=== PATIENT | female | born 1945 | race American Indian/Alaskan Native ===

== ENCOUNTER 2016-12-18 12:22 | Inpatient (IN) | payer MEDICARE ==
--- NOTE | 2016-12-18 12:34 | Emergency Department Report ---
HPI - General Chief Complaint: Weakness Time Seen by Provider: 12/18/16 12:26 - HPI HPI: Room 21 The patient is a 71-year-old female presenting with a chief complaint weakness. Patient states she's felt weak for 1 day. Patient states she would've difficulty getting up secondary to weakness. Patient denies pain of any type or shortness of breath. Patient admits to nausea but denies vomiting. Patient admits to diarrhea for 1 day. Patient denies any history of fever. The patient has a history of uterine CA is currently on chemotherapy. The patient states last received chemotherapy approximately 2 weeks ago Location: [see above] Duration: One day Quality: Weakness Severity: Moderate Modifying factors: [see above] Context: [see above] Mode of transportation: [not driving] ED Past Medical Hx - Past Medical History Previous Medical History?: Yes Hx Hypertension: Yes Hx of Cancer: Yes (uterine, breast) Additional medical history: DVT - Surgical History Past Surgical History?: Yes Additional Surgical History: Port - Social History Smoking Status: Never Smoker Substance Use Type: None - Medications Home Medications: Home Medications Medication Instructions Recorded Confirmed Last Taken Type Atenolol [Tenormin] 100 mg PO DAILY 12/18/16 12/18/16 12/18/16 History Calcium Carbonate/Vitamin D3 1 each PO BID 12/18/16 12/18/16 12/18/16 History [Calcium 600-Vit D3 800 Tablet] Losartan [Cozaar] 50 mg PO QDAY 12/18/16 12/18/16 12/17/16 History Potassium Chloride [K-Dur] 10 meq PO BID 12/18/16 12/18/16 12/18/16 History ED Review of Systems ROS: Stated complaint: GENERAL WEAKNESS/LOW BP Other details as noted in HPI Comment: All other systems reviewed and negative Constitutional: weakness. denies: chills, fever Eyes: denies: eye pain, eye discharge, vision change ENT: denies: ear pain, throat pain Respiratory: no symptoms reported Cardiovascular: denies: chest pain, palpitations Endocrine: no symptoms reported Gastrointestinal: nausea, diarrhea. denies: vomiting Genitourinary: denies: urgency, dysuria, discharge Musculoskeletal: denies: back pain, joint swelling, arthralgia Skin: denies: rash, lesions Neurological: denies: headache, weakness, paresthesias Psychiatric: denies: anxiety, depression Hematological/Lymphatic: denies: easy bleeding, easy bruising Physical Exam - Physical Exam Vital Signs: Vital Signs 12/18/16 12/18/16 12/18/16 12:14 12:25 12:27 Temperature 97.9 F Pulse Rate 68 60 Respiratory 16 11 L 11 L Rate Blood Pressure 129/65 [Right] O2 Sat by Pulse 98 100 100 Oximetry Physical Exam: GENERAL: The patient is well-developed well-nourished female lying on stretcher not appearing to be in acute distress. [] HEENT: Normocephalic. Atraumatic. Extraocular motions are intact. Patient has moist mucous membranes. NECK: Supple. Trachea midline CHEST/LUNGS: There is no respiratory distress noted. HEART/CARDIOVASCULAR: Regular. There is no tachycardia. ABDOMEN: There is no abdominal distention. SKIN: There is no rash. There is no edema. There is no diaphoresis. NEURO: The patient is awake, alert, and oriented. The patient is cooperative. The patient has normal speech MUSCULOSKELETAL: There is no evidence of acute injury. ED Course Vital Signs 12/18/16 12/18/16 12/18/16 12:14 12:25 12:27 Temperature 97.9 F Pulse Rate 68 60 Respiratory 16 11 L 11 L Rate Blood Pressure 129/65 [Right] O2 Sat by Pulse 98 100 100 Oximetry ED Medical Decision Making - Lab Data Result diagrams: 12/18/16 12:30 12/18/16 12:30 Laboratory Tests 12/18/16 12/18/16 12/18/16 12:30 12:30 12:30 WBC 1.9 L* RBC 2.25 L Hgb 6.7 L Hct 20.0 L MCV 89 MCH 30 MCHC 34 RDW 18.5 H Plt Count 36 L Add Manual Diff Complete Total Counted 50 Seg Neuts % (Manual) 62.0 Band Neutrophils % 0 Lymphocytes % (Manual) 34.0 Reactive Lymphs % (Man) 0 Monocytes % (Manual) 4.0 Eosinophils % (Manual) 0 Basophils % (Manual) 0 Metamyelocytes % 0 Myelocytes % 0 Promyelocytes % 0 Blast Cells % 0 Nucleated RBC % 2.0 H Seg Neutrophils # Man 1.2 L Band Neutrophils # 0.0 Lymphocytes # (Manual) 0.6 L Abs React Lymphs (Man) 0.0 Monocytes # (Manual) 0.1 Eosinophils # (Manual) 0.0 Basophils # (Manual) 0.0 Metamyelocytes # 0.0 Myelocytes # 0.0 Promyelocytes # 0.0 Blast Cells # 0.0 WBC Morphology Not Reportable Hypersegmented Neuts Not Reportable Hyposegmented Neuts Not Reportable Hypogranular Neuts Not Reportable Smudge Cells Not Reportable Toxic Granulation Not Reportable Toxic Vacuolation Not Reportable Dohle Bodies Not Reportable Pelger-Huet Anomaly Not Reportable Maynor Rods Not Reportable Platelet Estimate Not Reportable Clumped Platelets Not Reportable Plt Clumps, EDTA Not Reportable Large Platelets Not Reportable Giant Platelets Not Reportable Platelet Satelliting Not Reportable Plt Morphology Comment Not Reportable RBC Morphology Not Reportable Dimorphic RBCs Not Reportable Polychromasia Not Reportable Hypochromasia 1+ Poikilocytosis Not Reportable Anisocytosis 1+ Microcytosis Not Reportable Macrocytosis Not Reportable Spherocytes Not Reportable Pappenheimer Bodies Not Reportable Sickle Cells Not Reportable Target Cells Not Reportable Tear Drop Cells Not Reportable Ovalocytes Not Reportable Helmet Cells Not Reportable [place] Bodies Not Reportable [place] Rings Not Reportable [place] Cells Not Reportable Bite Cells Not Reportable Crenated Cell Not Reportable Elliptocytes Not Reportable Acanthocytes (Spur) Not Reportable Rouleaux Not Reportable Hemoglobin C Crystals Not Reportable Schistocytes Not Reportable Malaria parasites Not Reportable Leroy Bodies Not Reportable Hem Pathologist Commnt No PT 18.2 H INR 1.43 H APTT 52.8 H Sodium 137 Potassium 3.7 Chloride 93.4 L Carbon Dioxide 25 Anion Gap 22 BUN 15 Creatinine 0.7 Estimated GFR > 60 BUN/Creatinine Ratio 21.42 Glucose 121 H AST 11 ALT 6 L Alkaline Phosphatase 58 Total Creatine Kinase 49 CK-MB (CK-2) < 1.0 CK-MB (CK-2) Rel Index 2.0 Troponin T < 0.010 NT-Pro-B Natriuret Pep 234.0 Total Protein 7.0 Albumin 3.4 L Albumin/Globulin Ratio 0.9 Free T4 Urine Color Urine Turbidity Urine pH Ur Specific [place] Urine Protein Urine Glucose (UA) Urine Ketones Urine Blood Urine Nitrite Urine Bilirubin Urine Urobilinogen Ur Leukocyte Esterase Urine WBC (Auto) Urine RBC (Auto) Blood Type Antibody Screen DOMINIQUE Antibody Screen Crossmatch 12/18/16 12/18/16 12/18/16 12:30 12:30 12:46 WBC RBC Hgb Hct MCV MCH MCHC RDW Plt Count Add Manual Diff Total Counted Seg Neuts % (Manual) Band Neutrophils % Lymphocytes % (Manual) Reactive Lymphs % (Man) Monocytes % (Manual) Eosinophils % (Manual) Basophils % (Manual) Metamyelocytes % Myelocytes % Promyelocytes % Blast Cells % Nucleated RBC % Seg Neutrophils # Man Band Neutrophils # Lymphocytes # (Manual) Abs React Lymphs (Man) Monocytes # (Manual) Eosinophils # (Manual) Basophils # (Manual) Metamyelocytes # Myelocytes # Promyelocytes # Blast Cells # WBC Morphology Hypersegmented Neuts Hyposegmented Neuts Hypogranular Neuts Smudge Cells Toxic Granulation Toxic Vacuolation Dohle Bodies Pelger-Huet Anomaly Maynor Rods Platelet Estimate Clumped Platelets Plt Clumps, EDTA Large Platelets Giant Platelets Platelet Satelliting Plt Morphology Comment RBC Morphology Dimorphic RBCs Polychromasia Hypochromasia Poikilocytosis Anisocytosis Microcytosis Macrocytosis Spherocytes Pappenheimer Bodies Sickle Cells Target Cells Tear Drop Cells Ovalocytes Helmet Cells [place] Bodies [place] Rings [place] Cells Bite Cells Crenated Cell Elliptocytes Acanthocytes (Spur) Rouleaux Hemoglobin C Crystals Schistocytes Malaria parasites Leroy Bodies Hem Pathologist Commnt PT INR APTT Sodium Potassium Chloride Carbon Dioxide Anion Gap BUN Creatinine Estimated GFR BUN/Creatinine Ratio Glucose AST ALT Alkaline Phosphatase Total Creatine Kinase CK-MB (CK-2) CK-MB (CK-2) Rel Index Troponin T NT-Pro-B Natriuret Pep Total Protein Albumin Albumin/Globulin Ratio Free T4 1.56 H Urine Color Yellow Urine Turbidity Clear Urine pH 7.0 Ur Specific [place] 1.016 Urine Protein 30 mg/dl Urine Glucose (UA) Neg Urine Ketones Neg Urine Blood Sm Urine Nitrite Neg Urine Bilirubin Neg Urine Urobilinogen < 2.0 Ur Leukocyte Esterase Neg Urine WBC (Auto) < 1.0 Urine RBC (Auto) < 1.0 Blood Type O POSITIVE Antibody Screen TNR DOMINIQUE Antibody Screen Negative Crossmatch See Detail - EKG Data -: EKG Interpreted by Wi EKG shows normal: sinus rhythm Rate: bradycardia (59 bpm) - EKG Data When compared to previous EKG there are: previous EKG unavailable Interpretation: nonspecific ST-T wave hari (T-wave inversions leads 3 and aVF) - Radiology Data Radiology results: image reviewed (chest x-ray) interpreted by me: Chest x-ray-no focal infiltrates, no pneumothorax - Differential Diagnosis symptomatic anemia, hyponatremia, pneumonia, Critical care attestation.: If time is entered above; I have spent that time in minutes in the direct care of this critically ill patient, excluding procedure time. ED Disposition Clinical Impression: Pancytopenia, Symptomatic anemia Disposition: OP ADMIT IP TO THIS HOSP Is pt being admited?: Yes Does the pt Need Aspirin: No Condition: Fair Referrals: PRIMARY CARE, [Primary Care Provider] - 3-5 Days Time of Disposition: 14:07 (hospitalist notified)
[2016-12-18 13:15] LABS: Hemoglobin 6.7 gm/dl (10.1-14.3); Mean Corpuscular HGB Conc 34 % (30-34); Mean Corpuscular Hemoglobin 30 pg (28-32); Mean Corpuscular Volume 89 fl (79-97); Red Blood Count 2.25 M/mm3 (3.65-5.03); Red Cell Distribution Width 18.5 % (13.2-15.2)
[2016-12-18 13:17] LABS: INR 1.43 (0.87-1.13)
[2016-12-18 13:18] LABS: Partial Thromboplastin Time 52.8 Sec. (24.2-36.6)
[2016-12-18 13:22] LABS: Platelet Count 36 K/mm3 (140-440); White Blood Count 1.9 K/mm3 (4.5-11.0)
[2016-12-18 13:58] LABS: Alanine Aminotransferase 6 units/L (7-56); Albumin 3.4 g/dL (3.9-5); Alkaline Phosphatase 58 units/L (35-129); Chloride 93.4 mmol/L (98-107); Creatine Kinase 49 units/L (30-135); Potassium 3.7 mmol/L (3.6-5.0); Sodium 137 mmol/L (137-145)
[2016-12-18 13:59] LABS: Creatine Kinase MB < 1.0 ng/mL (0.0-4.0)
[2016-12-18 14:01] LABS: Basophils % (Manual) 0 % (0.0-1.8); Blastocytes % (Manual) 0 %; Eosinophils % (Manual) 0 % (0.0-4.3)
--- NOTE | 2016-12-18 14:01 | Admit Criteria Form ---
Admission Criteria Documentation: HEMATOLOGY [facility] Clinical Indications for Admission to Inpatient Care ( [place]/check or initial the applicable condition/criteria) Hospital Admission is needed for appropriate care of the patient because 1 or more of the following: [ ]I. Severe anemia indicated by 1 or more of the following (1)(2)(3) [ ]a) Altered mental status [ ]b) Chest pain [ ]c) Exertional dyspnea [ ]d) Syncope [ ]e) Other findings suggesting inadequate perfusion [ ]f) Treatment with transfusion or volume replacement is ineffective at resolving 1 or more of the following [A]: [ ]i) Tachycardia [ ]ii) Orthostatic vital sign changes as indicated by 1 or more of the following (4) [ ]1) Fall in SBP of 20 mm Hg or more 1 to 3 minutes after patient sits or stands from recumbent position [ ]2) Fall in DBP of 10 mm Hg or more 1 to 3 minutes after patient sits or stands from recumbent position [ ]II. High-risk febrile neutropenia [B] as indicated by 1 or more of the following(5)(6)(7)(8)(9) [ ]a) Profound neutropenia (C) anticipated to extend for more than 7 days [ ]b) Hemodynamic instability [ ]c) Hypoxemia [ ]d) Tachypnea [ ]e) Altered mental status [ ]f) Altered mental status [ ]g) New onset vomiting or diarrhea [ ]h) Oral or gastrointestinal mucositis that interferes with swallowing or causes severe diarrhea [ ]i) Focal infection (eg cellulitis, pneumonia, central line or catheter infection, perirectal abscess) [ ]j) Renal insufficiency (e.g., GFR of less than 30 mL/min/1.73m2 ( 0.5 mL/sec/1.73m2) [ ]k) Severe liver dysfunction (transaminase levels greater than 5 times normal) [ ]l) Platelet count less than 50,000/mm3 (50 x109/L)(6) [ ]m) Leukemia or lymphoma induction therapy [ ]n) Leukemia not in complete remission or with evidence of disease progression [ ]o) Bone marrow transplant patient [ ]p) Alemtuzumab being used for therapy [ ]q) [employer] Supportive Care in Cancer (MASCC) Risk Index score of < 21 [o) D](7)(10)(11) [ ]III. High-risk low platelet count as indicated by 1 or more of the following( 12)(13)(14) [ ]a) Severe or life-threatening bleeding (eg, intracranial, major gastrointestinal, or extensive mucosal bleeding), with any reduced platelet count [ ]b) Platelet count less than 20,000/mm3 (20 x109/L) with any active bleeding [ ]c) Platelet count less than 10,000/mm3 (10 x109/L) with minor purpura or petechiae [ ]d) Platelet count less than 5000/mm3 (5 x109/L) [ ]e) Low platelet count with hemolytic anemia [ ]IV. Active hemolysis with high-risk findings, including 1 or more of the following(15)(16)(17)(18)(19) [ ]a) Hematocrit less than 25% (0.25) [ ]b) Rapidly progressing anemia c) Thrombocytopenia(12)(13) [ ]d) Evidence of thrombosis or new renal insufficiency (eg hemolytic uremic syndrome) (20)(21)(22) [ ]V. Henonch-Schonlein purpura(23) [ ]Vl. Bleeding disorder with high-risk features (eg, hemophilia, coagulopathy) as indicated by 1 or more of the following (24)(25)(26)(27)(28) [ ]a) Central nervous system bleeding [ ]b) Retroperitoneal bleeding [ ]c) Retropharyngeal bleeding [ ]d) Gastrointestinal bleeding (29) [ ]e) Alveolar hemorrhage (30) [ ]f) Purpura [ ]f) Disseminated intravascular coagulation(31)(32) [ ]g) Major trauma(33)(34)(35) [ ]h) Deep laceration [ ]i) Head trauma(36) [ ]j) Traumatic or spontaneous expanding internal hematoma (eg retroperitonal occular) [ ]k) Failed outpatient management [ ][place]. Severe over-anticoagulation or high-risk situation as indicated by 1 or more of the following(37)(38)(39) [ ]a) Active bleeding(40) [ ]b) International normalized ratio 5 or greater and rapid reversal needed [ ]c) International normalized ratio 9 or greater [ ]VIIl. Congenital immunodeficiency states with severe morbidity as indicated by 1 or more of the following(41)(42)(43)(44) [ ]a) Severe infection [ ]b) Bone marrow transplant needed [ ]lX. Hyperviscosity syndrome with high-risk indicators indicated by 1 or more of the following (19)(45)(46)(47)(48) [ ]a) Polycythemia vera with hematocrit greater than 60% (0.60) [ ]b) Elevated platelet count associated with thrombosis, bleeding, or life-threatening organ dysfunction [ ]c) Severe signs or symptoms from elevated red cell, white cell, or protein levels, including 1 or more of the following: [ ]i) Altered mental status that is severe or psersistent [ ]ii) Dyspnea [ ]iii) Chest x-ray infiltrate [ ]iv) Visual changes [ ]v) Retinal abnormalities [ ]vi) Neuromuscular symptoms [ ]vii) Suspected ischemia or thrombosis [ ]viii) Bleeding [ ]X. Cryoglobulinemia requiring inpatient care due 1 or more of the following:( 49) [ ]a) Severe systemic effects (eg, glomerunephritis, other end organ damage due to vasculitis) [ ]b) Hyperviscosity (eg, acute thrombosis) [ ]c) Need for specified treatment that can only be managed in inpatient setting [ ]Xl. Methemoglobinemia and 1 or more of the following (50)(51): [ ]a) Hypotension [ ]b) Methemoglobinemia [ ]c) Cyanosis [ ]d) Seizure [ ]e) Lactic acidosis [ ]f) other severe symptoms due to tissue hypoxia (52)(53) [ ]Xll. Spleen trauma with blood loss or other need for acute (medical) treatment (34) [ ]Xlll. Transfusion reaction requiring inpatient care (eg, anaphylaxis, hemolysis, transfusion-related lung injury Hemodynamic instability)(54)(55)(56) [ ]XlV.Thrombotic disorder requiring inpatient care (eg, heparin-induced thrombocytopenia, castartrophic antiphospholipid syndrome, thrombotic thrombocytopenia) as indicated by 1 or more of the following (12)(57)(58)(59)(60): [ ]a) Need for inpatient treatment (e.g. IV anticoagulation, IV immunosuppression, plasma exchange) [ ]b) Need for inpatient monitoring (e.g. frequent laboratory testing, response to therapy) [ X]XV. Hematology condition symptom or finding for which emergency and observation care have failed or are not considered appropriate (See General Criteria: Observation Care General Admission Criteria or Pediatric General Admission Criteria guideline as appropriate The original [facility] content created by [facility] has been revised. The portions of the content which have been revised are identified through the use of italic text or in bold, and [facility] has neither reviewed nor approved the modified material. All other unmodified content is copyright [facility]. Please see references footnoted in the original [facility] edition 2017 Admission Criteria Met: Yes
[2016-12-18 14:02] LABS: Anisocytosis 1+; Diff Status Complete; Hypochromasia 1+
[2016-12-18] MEDS ORDERED: NACL 0.9% 500 ML 500 ML IV ONE (14:05)
[2016-12-18 14:07] LABS: Albumin/Globulin Ratio 0.9 %; Anion Gap 22 mmol/L; BUN/Creatinine Ratio 21.42; Blood Urea Nitrogen 15 mg/dL (7-17); Carbon Dioxide 25 mmol/L (22-30); Glucose 121 mg/dL (65-100)
[2016-12-18 14:07] LABS: Bilirubin,Urine NEG (Negative); Blood,Urine SM (Negative); Ketones,Urine NEG (Negative); Leukocyte Esterase,Urine NEG (Negative); Nitrite,Urine NEG (Negative); RBC,Urine < 1.0 /HPF (0.0-6.0); Urobilinogen,Urine < 2.0 mg/dL (<2.0); WBC,Urine < 1.0 /HPF (0.0-6.0)
[2016-12-18 14:20] LABS: Calcium 8.2 mg/dL (8.4-10.2)
--- NOTE | 2016-12-18 14:26 | XRay Report ---
AP CHEST: HISTORY: Weakness No comparison. A right [id number] terminates at the cavoatrial junction. AP view of the chest demonstrates a normal mediastinal and cardiac contour with clear lungs and normal bony and soft tissue structures. IMPRESSION: Unremarkable AP chest.
--- NOTE | 2016-12-18 14:34 | History and Physical Report ---
History of Present Illness Date of examination: 12/18/16 Date of admission: 12/18/2016 Chief complaint: CC: Feeling weak for 2 days History of present illness: LAC COURTE OREILLES: The patient is a 71-year-old female presenting with a chief complaint of weakness. Patient states she's felt weak for couple of days. Patient states she would've difficulty getting up secondary to weakness. Patient denies pain of any type or shortness of breath. Patient admits to nausea but denies vomiting. Patient admits to diarrhea for 1 day. Patient denies any history of fever. The patient has a history of uterine CA is currently on 5th cycle of chemotherapy. Her oncologist is from [facility]. The patient states last received chemotherapy approximately 2 weeks ago Past Medical History Previous Medical History?: Yes Hx Hypertension: Yes Hx of Cancer: Yes (uterine, breast) Additional medical history: DVT - Surgical History Past Surgical History?: Yes Additional Surgical History: Port - Social History Smoking Status: Never Smoker Substance Use Type: None ROS: Stated complaint: GENERAL WEAKNESS/LOW BP Other details as noted in HPI Comment: All other systems reviewed and negative Constitutional: weakness. denies: chills, fever Eyes: denies: eye pain, eye discharge, vision change ENT: denies: ear pain, throat pain Respiratory: no symptoms reported Cardiovascular: denies: chest pain, palpitations Endocrine: no symptoms reported Gastrointestinal: nausea, diarrhea. denies: vomiting Genitourinary: denies: urgency, dysuria, discharge Musculoskeletal: denies: back pain, joint swelling, arthralgia Skin: denies: rash, lesions Neurological: denies: headache, weakness, paresthesias Psychiatric: denies: anxiety, depression Hematological/Lymphatic: denies: easy bleeding, easy bruising - Medications Home Medications: Home Medications Medication Instructions Recorded Confirmed Last Taken Type Atenolol [Tenormin] 100 mg PO DAILY 12/18/16 12/18/16 12/18/16 History Calcium Carbonate/Vitamin D3 1 each PO BID 12/18/16 12/18/16 12/18/16 History [Calcium 600-Vit D3 800 Tablet] Losartan [Cozaar] 50 mg PO QDAY 12/18/16 12/18/16 12/17/16 History Potassium Chloride [K-Dur] 10 meq PO BID 12/18/16 12/18/16 12/18/16 History Past History Past Medical History: cancer, hypertension, other (Uterine cancer diagnosed in July 2016) Medications and Allergies Allergies Allergy/AdvReac Type Severity Reaction Status Date / Time No Known Allergies Allergy Unverified 12/18/16 12:25 Home Medications Medication Instructions Recorded Confirmed Last Taken Type Atenolol [Tenormin] 100 mg PO DAILY 12/18/16 12/18/16 12/18/16 06:00 History 100mg Calcium Carbonate/Vitamin D3 1 each PO BID 12/18/16 12/18/16 12/18/16 06:00 History [Calcium 600-Vit D3 800 Tablet] 1 tab Dabigatran [Pradaxa] 150 mg PO BID 12/18/16 12/18/16 12/18/16 06:00 History 150mg Losartan [Cozaar] 50 mg PO QDAY 12/18/16 12/18/16 12/18/16 05:45 History 50mg Potassium Chloride [K-Dur] 10 meq PO BID 12/18/16 12/18/16 12/18/16 06:00 History 10meq Exam - Physical Exam Narrative exam: Lying comfortably - Constitutional Vitals: Temp Pulse Resp BP Pulse Ox 96.9 F L 60 11 L 129/65 100 12/18/16 13:46 12/18/16 12:25 12/18/16 12:27 12/18/16 12:25 12/18/16 12:27 General appearance: Present: no acute distress, well-nourished - EENT Eyes: Present: PERRL ENT: hearing intact, clear oral mucosa - Neck Neck: Present: supple, normal ROM - Respiratory Respiratory effort: normal Respiratory: bilateral: CTA - Cardiovascular Heart Sounds: Present: S1 & S2. Absent: rub, click - Extremities Extremities: pulses symmetrical, No edema Peripheral Pulses: within normal limits - Abdominal General gastrointestinal: Present: soft, non-tender, non-distended, normal bowel sounds Female genitourinary: Present: normal - Integumentary Integumentary: Present: clear, warm, dry - Musculoskeletal Musculoskeletal: gait normal, strength equal bilaterally - Psychiatric Psychiatric: appropriate mood/affect, intact judgment & insight - Neurologic Neurologic: CNII-XII intact, moves all extremities Results - Labs CBC & Chem 7: 12/19/16 04:11 12/19/16 04:11 Labs: Laboratory Last Values WBC 1.9 K/mm3 (4.5-11.0) L* 12/18/16 12:30 RBC 2.25 M/mm3 (3.65-5.03) L 12/18/16 12:30 Hgb 6.7 gm/dl (10.1-14.3) L 12/18/16 12:30 Hct 20.0 % (30.3-42.9) L 12/18/16 12:30 MCV 89 fl (79-97) 12/18/16 12:30 MCH 30 pg (28-32) 12/18/16 12:30 MCHC 34 % (30-34) 12/18/16 12:30 RDW 18.5 % (13.2-15.2) H 12/18/16 12:30 Plt Count 36 K/mm3 (140-440) L 12/18/16 12:30 Add Manual Diff Complete 12/18/16 12:30 Total Counted 50 12/18/16 12:30 Seg Neuts % (Manual) 62.0 % (40.0-70.0) 12/18/16 12:30 Band Neutrophils % 0 % 12/18/16 12:30 Lymphocytes % (Manual) 34.0 % (13.4-35.0) 12/18/16 12:30 Reactive Lymphs % (Man) 0 % 12/18/16 12:30 Monocytes % (Manual) 4.0 % (0.0-7.3) 12/18/16 12:30 Eosinophils % (Manual) 0 % (0.0-4.3) 12/18/16 12:30 Basophils % (Manual) 0 % (0.0-1.8) 12/18/16 12:30 Metamyelocytes % 0 % 12/18/16 12:30 Myelocytes % 0 % 12/18/16 12:30 Promyelocytes % 0 % 12/18/16 12:30 Blast Cells % 0 % 12/18/16 12:30 Nucleated RBC % 2.0 % (0.0-0.9) H 12/18/16 12:30 Seg Neutrophils # Man 1.2 K/mm3 (1.8-7.7) L 12/18/16 12:30 Band Neutrophils # 0.0 K/mm3 12/18/16 12:30 Lymphocytes # (Manual) 0.6 K/mm3 (1.2-5.4) L 12/18/16 12:30 Abs React Lymphs (Man) 0.0 K/mm3 12/18/16 12:30 Monocytes # (Manual) 0.1 K/mm3 (0.0-0.8) 12/18/16 12:30 Eosinophils # (Manual) 0.0 K/mm3 (0.0-0.4) 12/18/16 12:30 Basophils # (Manual) 0.0 K/mm3 (0.0-0.1) 12/18/16 12:30 Metamyelocytes # 0.0 K/mm3 12/18/16 12:30 Myelocytes # 0.0 K/mm3 12/18/16 12:30 Promyelocytes # 0.0 K/mm3 12/18/16 12:30 Blast Cells # 0.0 K/mm3 12/18/16 12:30 WBC Morphology Not Reportable 12/18/16 12:30 Hypersegmented Neuts Not Reportable 12/18/16 12:30 Hyposegmented Neuts Not Reportable 12/18/16 12:30 Hypogranular Neuts Not Reportable 12/18/16 12:30 Smudge Cells Not Reportable 12/18/16 12:30 Toxic Granulation Not Reportable 12/18/16 12:30 Toxic Vacuolation Not Reportable 12/18/16 12:30 Dohle Bodies Not Reportable 12/18/16 12:30 Pelger-Huet Anomaly Not Reportable 12/18/16 12:30 Maynor Rods Not Reportable 12/18/16 12:30 Platelet Estimate Not Reportable 12/18/16 12:30 Clumped Platelets Not Reportable 12/18/16 12:30 Plt Clumps, EDTA Not Reportable 12/18/16 12:30 Large Platelets Not Reportable 12/18/16 12:30 Giant Platelets Not Reportable 12/18/16 12:30 Platelet Satelliting Not Reportable 12/18/16 12:30 Plt Morphology Comment Not Reportable 12/18/16 12:30 RBC Morphology Not Reportable 12/18/16 12:30 Dimorphic RBCs Not Reportable 12/18/16 12:30 Polychromasia Not Reportable 12/18/16 12:30 Hypochromasia 1+ 12/18/16 12:30 Poikilocytosis Not Reportable 12/18/16 12:30 Anisocytosis 1+ 12/18/16 12:30 Microcytosis Not Reportable 12/18/16 12:30 Macrocytosis Not Reportable 12/18/16 12:30 Spherocytes Not Reportable 12/18/16 12:30 Pappenheimer Bodies Not Reportable 12/18/16 12:30 Sickle Cells Not Reportable 12/18/16 12:30 Target Cells Not Reportable 12/18/16 12:30 Tear Drop Cells Not Reportable 12/18/16 12:30 Ovalocytes Not Reportable 12/18/16 12:30 Helmet Cells Not Reportable 12/18/16 12:[address] [place] Bodies Not Reportable 12/18/16 12:30 [place] Rings Not Reportable 12/18/16 12:30 [place] Cells Not Reportable 12/18/16 12:30 Bite Cells Not Reportable 12/18/16 12:30 Crenated Cell Not Reportable 12/18/16 12:30 Elliptocytes Not Reportable 12/18/16 12:30 Acanthocytes (Spur) Not Reportable 12/18/16 12:30 Rouleaux Not Reportable 12/18/16 12:30 Hemoglobin C Crystals Not Reportable 12/18/16 12:30 Schistocytes Not Reportable 12/18/16 12:30 Malaria parasites Not Reportable 12/18/16 12:30 Leroy Bodies Not Reportable 12/18/16 12:30 Hem Pathologist Commnt No 12/18/16 12:30 PT 18.2 Sec. (12.2-14.9) H 12/18/16 12:30 INR 1.43 (0.87-1.13) H 12/18/16 12:30 APTT 52.8 Sec. (24.2-36.6) H 12/18/16 12:30 Sodium 137 mmol/L (137-145) 12/18/16 12:30 Potassium 3.7 mmol/L (3.6-5.0) 12/18/16 12:30 Chloride 93.4 mmol/L (98-107) L 12/18/16 12:30 Carbon Dioxide 25 mmol/L (22-30) 12/18/16 12:30 Anion Gap 22 mmol/L 12/18/16 12:30 BUN 15 mg/dL (7-17) 12/18/16 12:30 Creatinine 0.7 mg/dL (0.7-1.2) 12/18/16 12:30 Estimated GFR > 60 ml/min 12/18/16 12:30 BUN/Creatinine Ratio 21.42 % 12/18/16 12:30 Glucose 121 mg/dL (65-100) H 12/18/16 12:30 Calcium 8.2 mg/dL (8.4-10.2) L 12/18/16 12:30 Total Bilirubin 0.40 mg/dL (0.1-1.2) 12/18/16 12:30 AST 11 units/L (5-40) 12/18/16 12:30 ALT 6 units/L (7-56) L 12/18/16 12:30 Alkaline Phosphatase 58 units/L (35-129) 12/18/16 12:30 Total Creatine Kinase 49 units/L (30-135) 12/18/16 12:30 CK-MB (CK-2) < 1.0 ng/mL (0.0-4.0) 12/18/16 12:30 CK-MB (CK-2) Rel Index 2.0 (0-4) 12/18/16 12:30 Troponin T < 0.010 ng/mL (0.00-0.029) 12/18/16 12:30 NT-Pro-B Natriuret Pep 234.0 pg/mL (0-900) 12/18/16 12:30 Total Protein 7.0 g/dL (6.3-8.2) 12/18/16 12:30 Albumin 3.4 g/dL (3.9-5) L 12/18/16 12:30 Albumin/Globulin Ratio 0.9 % 12/18/16 12:30 TSH 1.350 mlU/mL (0.270-4.200) 12/18/16 12:30 Free T4 1.56 ng/dL (0.76-1.46) H 12/18/16 12:30 Urine Color Yellow (Yellow) 12/18/16 12:46 Urine Turbidity Clear (Clear) 12/18/16 12:46 Urine pH 7.0 (5.0-7.0) 12/18/16 12:46 Ur Specific [place] 1.016 (1.003-1.030) 12/18/16 12:46 Urine Protein 30 mg/dl mg/dL (Negative) 12/18/16 12:46 Urine Glucose (UA) Neg mg/dL (Negative) 12/18/16 12:46 Urine Ketones Neg mg/dL (Negative) 12/18/16 12:46 Urine Blood Sm (Negative) 12/18/16 12:46 Urine Nitrite Neg (Negative) 12/18/16 12:46 Urine Bilirubin Neg (Negative) 12/18/16 12:46 Urine Urobilinogen < 2.0 mg/dL (<2.0) 12/18/16 12:46 Ur Leukocyte Esterase Neg (Negative) 12/18/16 12:46 Urine WBC (Auto) < 1.0 /HPF (0.0-6.0) 12/18/16 12:46 Urine RBC (Auto) < 1.0 /HPF (0.0-6.0) 12/18/16 12:46 Blood Type O POSITIVE 12/18/16 12:30 Antibody Screen TNR 12/18/16 12:30 DOMINIQUE Antibody Screen Negative 12/18/16 12:30 Crossmatch See Detail 12/18/16 12:30 - Imaging and Cardiology EKG: report reviewed Chest x-ray: report reviewed (NAF) Assessment and Plan Advance Directives: Yes (Full code) Plan of care discussed with patient/family: Yes - Patient Problems (1) Symptomatic anemia Current Visit: Yes Status: Acute Plan to address problem: Sec to chemo therapy .Transfuse one unit of PrBC.Patient reluctant to get Blood transfusions.Iron level ordered (2) Pancytopenia Current Visit: Yes Status: Acute Plan to address problem: Will defer to Oncology reg Neupogen or Patient to follow up with her Oncologist at [facility]. (3) HTN (hypertension) Current Visit: Yes Status: Chronic Qualifiers: Hypertension type: essential hypertension Qualified Code(s): I10 - Essential (primary) hypertension Plan to address problem: Cont Losartan and other anti hypertensives (4) Hypokalemia Current Visit: Yes Status: Acute Plan to address problem: Supplemented (5) Uterine cancer Current Visit: Yes Status: Chronic Qualifiers: Malignant neoplasm of uterus location: M Malignant neoplasm of cervix location: M Malignant neoplasm of body of uterus location: M Plan to address problem: Defer to oncology and folow up with her oncologist (6) DVT prophylaxis Current Visit: Yes Status: Acute Plan to address problem: No lovenox or Heparin.Only SCD's
[2016-12-18] MEDS ORDERED: MILK OF MAGNESIA PO PRN (14:35)
[2016-12-18] MEDS ORDERED: ZOFRAN IV PRN (14:35)
[2016-12-18] MEDS ORDERED: DILAUDID IV PRN (14:35)
[2016-12-18] MEDS ORDERED: DULCOLAX PR PRN (14:35)
[2016-12-18] MEDS ORDERED: TYLENOL PO PRN (14:35)
[2016-12-18] MEDS ORDERED: PERCOCET 5/325 PO PRN (14:35)
[2016-12-18] MEDS ORDERED: NON-FORMULARY (Atenolol [Tenormin] 100 MG) PO SCH (14:45)
[2016-12-18] MEDS ORDERED: D5/0.45NS 1,000 ML IV SCH (15:00)
[2016-12-18] MEDS: COZAAR PO SCH (15:15)
[2016-12-18] MEDS: HEPARIN SUB-Q SCH ×2 (15:15→21:37)
[2016-12-18] MEDS: K-DUR PO SCH ×2 (15:15→21:36)
[2016-12-18] MEDS: OYSCO D 500 MG-200 UNIT PO SCH (21:35)
[2016-12-18] MEDS ORDERED: CALCIUM CARBONATE PO SCH (22:00)
[2016-12-18] MEDS ORDERED: VITAMIN D3 PO SCH (22:00)
[2016-12-19 04:25] LABS: Hemoglobin 6.5 gm/dl (10.1-14.3); Mean Corpuscular HGB Conc 33 % (30-34); Mean Corpuscular Hemoglobin 30 pg (28-32); Mean Corpuscular Volume 90 fl (79-97); Red Blood Count 2.19 M/mm3 (3.65-5.03); Red Cell Distribution Width 19.3 % (13.2-15.2)
[2016-12-19 04:31] LABS: Platelet Count 34 K/mm3 (140-440)
[2016-12-19 04:33] LABS: Hematocrit 19.6 % (30.3-42.9); White Blood Count 1.5 K/mm3 (4.5-11.0)
[2016-12-19 05:34] LABS: Basophils % (Manual) 0 % (0.0-1.8); Blastocytes % (Manual) 0 %
[2016-12-19 05:35] LABS: Anisocytosis 1+; Diff Status Complete; Hypochromasia 1+; Platelet Estimate Consistent w Auto
[2016-12-19 05:46] LABS: Alanine Aminotransferase 8 units/L (7-56); Albumin 2.9 g/dL (3.9-5); Albumin/Globulin Ratio 0.8 %; Alkaline Phosphatase 56 units/L (35-129); Anion Gap 14 mmol/L; BUN/Creatinine Ratio 13.33; Blood Urea Nitrogen 12 mg/dL (7-17); Calcium 8.3 mg/dL (8.4-10.2); Carbon Dioxide 30 mmol/L (22-30); Chloride 97.8 mmol/L (98-107); Glucose 93 mg/dL (65-100); Sodium 139 mmol/L (137-145); Total Protein 6.7 g/dL (6.3-8.2)
[2016-12-19] MEDS ORDERED: K-DUR PO ONE (06:55)
[2016-12-19 07:46] LABS: Anion Gap 16 mmol/L; Blood Urea Nitrogen 12 mg/dL (7-17); Calcium 8.8 mg/dL (8.4-10.2); Carbon Dioxide 29 mmol/L (22-30); Chloride 99.1 mmol/L (98-107); Glucose 91 mg/dL (65-100); Potassium 3.3 mmol/L (3.6-5.0); Sodium 141 mmol/L (137-145)
[2016-12-19 07:51] LABS: Total Iron Binding Capacity 179.2 mcg/dL (250-450)
[2016-12-19] MEDS ORDERED: NACL 0.9% 500 ML 500 ML IV NR ×2 (08:00→11:30)
[2016-12-19] MEDS: K-DUR PO SCH (10:13)
[2016-12-19] MEDS: OYSCO D 500 MG-200 UNIT PO SCH (10:13)
[2016-12-19] MEDS: TENORMIN PO SCH (10:14)
[2016-12-19] MEDS: COZAAR PO SCH (10:15)
[2016-12-19] MEDS ORDERED: KCL 40 MEQ in NACL 0.45% 1000 ML 1,000 ML IV SCH (12:00)
--- NOTE | 2016-12-19 12:06 | Hem/Onc Consultation ---
History of Present Illness - Reason for Consult Consult date: 12/19/16 - History of Present Illness 71 Y/o lady with uterine cancer s/p surgery and XRT and on chemotherapy. Had issues with low blood requiring transfusions recently. Was on Pradaxa for DVT. Admitted with pancytopenia. Past History Past Medical History: cancer, hypertension, other (Uterine cancer diagnosed in July 2016) Medications and Allergies Allergies Allergy/AdvReac Type Severity Reaction Status Date / Time No Known Allergies Allergy Unverified 12/18/16 12:25 Home Medications Medication Instructions Recorded Confirmed Last Taken Type Atenolol [Tenormin] 100 mg PO DAILY 12/18/16 12/18/16 12/18/16 06:00 History 100mg Calcium Carbonate/Vitamin D3 1 each PO BID 12/18/16 12/18/16 12/18/16 06:00 History [Calcium 600-Vit D3 800 Tablet] 1 tab Dabigatran [Pradaxa] 150 mg PO BID 12/18/16 12/18/16 12/18/16 06:00 History 150mg Losartan [Cozaar] 50 mg PO QDAY 12/18/16 12/18/16 12/18/16 05:45 History 50mg Potassium Chloride [K-Dur] 10 meq PO BID 12/18/16 12/18/16 12/18/16 06:00 History 10meq Active Meds: Active Medications Acetaminophen (Tylenol) 650 mg PO Q4H PRN PRN Reason: Pain MILD(1-3)/Fever >100.5/MILLARD Atenolol (Tenormin) 100 mg PO QDAY [facility] Last Admin: 12/19/16 10:14 Dose: Not Given Bisacodyl (Dulcolax) 10 mg DC QDAY PRN PRN Reason: Constipation unrelieved by MOM Calcium/Vitamin D (Oysco D 500 Mg-200 Unit) 1 each PO BID [facility] Last Admin: 12/19/16 10:13 Dose: 1 each Hydromorphone HCl (Dilaudid) 0.5 mg IV Q3H PRN PRN Reason: Pain , Severe (7-10) Potassium Chloride 40 meq/ (Sodium Chloride) 1,020 mls @ 125 mls/hr IV DIRECT DEVONTE Stop: 12/19/16 20:10 Sodium Chloride (Nacl 0.9% 500 Ml) 500 mls @ 0 mls/hr IV ONCE NR PRN Reason: As Directed Stop: 12/19/16 15:00 Losartan Potassium (Cozaar) 50 mg PO QDAY [facility] Last Admin: 12/19/16 10:15 Dose: Not Given Magnesium Hydroxide (Milk Of Magnesia) 30 ml PO Q4H PRN PRN Reason: Constipation Ondansetron HCl (Zofran) 4 mg IV Q8H PRN PRN Reason: N/V unrelieved by Reglan Oxycodone/Acetaminophen (Percocet 5/325) 1 tab PO Q6H PRN PRN Reason: Pain, Moderate (4-6) Potassium Chloride (K-Dur) 10 meq PO BID [facility] Last Admin: 12/19/16 10:13 Dose: 10 meq Review of Systems All systems: negative Constitutional: weight loss, anorexia, fatigue Exam - Constitutional Vitals: Last Vital Signs Temp 98.6 F 12/19/16 09:00 Pulse 75 12/19/16 10:15 Resp 20 12/19/16 09:00 BP 116/66 12/19/16 10:15 Pulse Ox 95 12/19/16 09:00 Pain Intensity (0-10): denies any pain General appearance: mild distress Performance status: 2- selfcare, ambulatory - EENT Eyes: PERRL ENT: hearing intact Lymph node exam: negative cervical - Neck Neck: supple, normal ROM - Respiratory Respiratory effort: Positive: normal Respiratory: bilateral: CTA - Cardiovascular Rhythm: regular Heart Sounds: Present: S1 & S2 - Gastrointestinal General gastrointestinal: Present: soft - Musculoskeletal Musculoskeletal: strength equal bilaterally - Neurologic Neurologic: CNII-XII intact - Psychiatric Psychiatric: appropriate mood/affect Results - Labs lab Results: Laboratory Results - last 24 hr 12/19/16 12/19/16 12/19/16 04:11 04:11 07:11 WBC 1.5 L* RBC 2.19 L Hgb 6.5 L Hct 19.6 L* MCV 90 MCH 30 MCHC 33 RDW 19.3 H Plt Count 34 L Add Manual Diff Complete Total Counted 100 Seg Neuts % (Manual) 42.0 Band Neutrophils % 0 Lymphocytes % (Manual) 48.0 H Reactive Lymphs % (Man) 0 Monocytes % (Manual) 8.0 H Eosinophils % (Manual) 2.0 Basophils % (Manual) 0 Metamyelocytes % 0 Myelocytes % 0 Promyelocytes % 0 Blast Cells % 0 Nucleated RBC % Not Reportable Seg Neutrophils # Man 0.6 L Band Neutrophils # 0.0 Lymphocytes # (Manual) 0.7 L Abs React Lymphs (Man) 0.0 Monocytes # (Manual) 0.1 Eosinophils # (Manual) 0.0 Basophils # (Manual) 0.0 Metamyelocytes # 0.0 Myelocytes # 0.0 Promyelocytes # 0.0 Blast Cells # 0.0 WBC Morphology Not Reportable Hypersegmented Neuts Not Reportable Hyposegmented Neuts Not Reportable Hypogranular Neuts Not Reportable Smudge Cells Not Reportable Toxic Granulation Not Reportable Toxic Vacuolation Not Reportable Dohle Bodies Not Reportable Pelger-Huet Anomaly Not Reportable Maynor Rods Not Reportable Platelet Estimate Consistent w auto Clumped Platelets Not Reportable Plt Clumps, EDTA Not Reportable Large Platelets Not Reportable Giant Platelets Not Reportable Platelet Satelliting Not Reportable Plt Morphology Comment Not Reportable RBC Morphology Not Reportable Dimorphic RBCs Not Reportable Polychromasia Not Reportable Hypochromasia 1+ Poikilocytosis Not Reportable Anisocytosis 1+ Microcytosis Not Reportable Macrocytosis Not Reportable Spherocytes Not Reportable Pappenheimer Bodies Not Reportable Sickle Cells Not Reportable Target Cells Not Reportable Tear Drop Cells Not Reportable Ovalocytes Not Reportable Helmet Cells Not Reportable [place] Bodies Not Reportable [place] Rings Not Reportable [place] Cells Not Reportable Bite Cells Not Reportable Crenated Cell Not Reportable Elliptocytes Not Reportable Acanthocytes (Spur) Not Reportable Rouleaux Not Reportable Hemoglobin C Crystals Not Reportable Schistocytes Not Reportable Malaria parasites Not Reportable Leroy Bodies Not Reportable Hem Pathologist Commnt No Sodium 139 141 Potassium 3.0 L 3.3 L Chloride 97.8 L 99.1 Carbon Dioxide 30 29 Anion Gap 14 16 BUN 12 12 Creatinine 0.9 0.8 Estimated GFR > 60 > 60 BUN/Creatinine Ratio 13.33 15.00 Glucose 93 91 Calcium 8.3 L 8.8 Iron TIBC % Saturation Transferrin Total Bilirubin 0.20 AST 13 ALT 8 Alkaline Phosphatase 56 Total Protein 6.7 Albumin 2.9 L Albumin/Globulin Ratio 0.8 12/19/16 07:11 WBC RBC Hgb Hct MCV MCH MCHC RDW Plt Count Add Manual Diff Total Counted Seg Neuts % (Manual) Band Neutrophils % Lymphocytes % (Manual) Reactive Lymphs % (Man) Monocytes % (Manual) Eosinophils % (Manual) Basophils % (Manual) Metamyelocytes % Myelocytes % Promyelocytes % Blast Cells % Nucleated RBC % Seg Neutrophils # Man Band Neutrophils # Lymphocytes # (Manual) Abs React Lymphs (Man) Monocytes # (Manual) Eosinophils # (Manual) Basophils # (Manual) Metamyelocytes # Myelocytes # Promyelocytes # Blast Cells # WBC Morphology Hypersegmented Neuts Hyposegmented Neuts Hypogranular Neuts Smudge Cells Toxic Granulation Toxic Vacuolation Dohle Bodies Pelger-Huet Anomaly Maynor Rods Platelet Estimate Clumped Platelets Plt Clumps, EDTA Large Platelets Giant Platelets Platelet Satelliting Plt Morphology Comment RBC Morphology Dimorphic RBCs Polychromasia Hypochromasia Poikilocytosis Anisocytosis Microcytosis Macrocytosis Spherocytes Pappenheimer Bodies Sickle Cells Target Cells Tear Drop Cells Ovalocytes Helmet Cells [place] Bodies [place] Rings [place]ix[place] Cells Bite Cells Crenated Cell Elliptocytes Acanthocytes (Spur) Rouleaux Hemoglobin C Crystals Schistocytes Malaria parasites Leroy Bodies Hem Pathologist Commnt Sodium Potassium Chloride Carbon Dioxide Anion Gap BUN Creatinine Estimated GFR BUN/Creatinine Ratio Glucose Calcium Iron 78 TIBC 179.20 L % Saturation 43.53 Transferrin 128 L Total Bilirubin AST ALT Alkaline Phosphatase Total Protein Albumin Albumin/Globulin Ratio Assessment and Plan - Patient Problems (1) Pancytopenia Current Visit: Yes Status: Acute Plan to address problem: Transfuse PRBC. Informed consent obtained. Start neupogen. Platelets today. left VW for dr Gay. Complicated decision making. 45 minutes spent with patient more than 50% counsellling and cordinating care.
[2016-12-19] MEDS ORDERED: NACL 0.9% 500 ML 500 ML IV ONE (12:08)
--- NOTE | 2016-12-19 14:37 | Progress Note ---
Assessment and Plan Assessment and plan: The patient is a 71-year-old female presenting with a chief complaint of weakness. She has uterine cancer that was diagnosed in July 2016, and is currently receiving chemotherapy and with the hospital, she received higher fifth cycle of chemotherapy on December 08, she does not think she received Neulasta she has never heard of it Symptomatic anemia, RAULITO hemoglobin 6.5 Sec to chemo therapy . Patient has been counseled that she needs multiple transfusions, she verbalized understanding TIBC low indicative of anemia of chronic disease, thyroid function tests are normal Pancytopenia, neutropenia, thrombocytopenia Hematology Oncology input appreciated, Neupogen ordered and platelet transfusion also ordered HTN (hypertension) Cont Losartan and other anti hypertensives Hypokalemia Supplemented Uterine cancer Outpatient follow-up with her oncologist at [facility] History of recent right lower extremity DVT She states that she was diagnosed with a DVT 2 months ago, she has been on multiple blood thinners he is currently been on pradaxa for which she has not taking for a few days Case was discussed with vascular surgery, IVC filter device she contraindicated as the malignancy hypercoagulable, however she is currently thrombocytopenic due to recent chemotherapy When her thrombocytopenia resolves anticoagulation may be started by her grinder mill operator as an outpatient DVT prophylaxis No lovenox or Heparin.Only SCD's in light of thrombocytopenia History Interval history: She feels well, she has been feeling weak and she has been having dyspnea on exertion Hospitalist Physical - Physical exam Narrative exam: General: Patient appears well in no distress HEENT: MMM, EOMI cardiac: S1-S2 heard lungs: clear to auscultation, abdomen: soft, nontender, nondistended bowel sounds positive extremities: no edema clubbing or cyanosis Skin: no rash or lesion Neuro: no focal deficit Psych: appropriate behavior and mood, cognition intact - Constitutional Vitals: Temp Pulse Resp BP Pulse Ox 98.6 F 71 18 133/73 98 12/19/16 11:31 12/19/16 11:31 12/19/16 11:31 12/19/16 11:31 12/19/16 11:31 General appearance: Present: no acute distress, well-nourished Results - Labs CBC & Chem 7: 12/21/16 07:34 12/20/16 09:57 Labs: Laboratory Last Values WBC 1.5 K/mm3 (4.5-11.0) L* 12/19/16 04:11 RBC 2.19 M/mm3 (3.65-5.03) L 12/19/16 04:11 Hgb 6.5 gm/dl (10.1-14.3) L 12/19/16 04:11 Hct 19.6 % (30.3-42.9) L* 12/19/16 04:11 MCV 90 fl (79-97) 12/19/16 04:11 MCH 30 pg (28-32) 12/19/16 04:11 MCHC 33 % (30-34) 12/19/16 04:11 RDW 19.3 % (13.2-15.2) H 12/19/16 04:11 Plt Count 34 K/mm3 (140-440) L 12/19/16 04:11 Add Manual Diff Complete 12/19/16 04:11 Total Counted 100 12/19/16 04:11 Seg Neuts % (Manual) 42.0 % (40.0-70.0) 12/19/16 04:11 Band Neutrophils % 0 % 12/19/16 04:11 Lymphocytes % (Manual) 48.0 % (13.4-35.0) H 12/19/16 04:11 Reactive Lymphs % (Man) 0 % 12/19/16 04:11 Monocytes % (Manual) 8.0 % (0.0-7.3) H 12/19/16 04:11 Eosinophils % (Manual) 2.0 % (0.0-4.3) 12/19/16 04:11 Basophils % (Manual) 0 % (0.0-1.8) 12/19/16 04:11 Metamyelocytes % 0 % 12/19/16 04:11 Myelocytes % 0 % 12/19/16 04:11 Promyelocytes % 0 % 12/19/16 04:11 Blast Cells % 0 % 12/19/16 04:11 Nucleated RBC % Not Reportable 12/19/16 04:11 Seg Neutrophils # Man 0.6 K/mm3 (1.8-7.7) L 12/19/16 04:11 Band Neutrophils # 0.0 K/mm3 12/19/16 04:11 Lymphocytes # (Manual) 0.7 K/mm3 (1.2-5.4) L 12/19/16 04:11 Abs React Lymphs (Man) 0.0 K/mm3 12/19/16 04:11 Monocytes # (Manual) 0.1 K/mm3 (0.0-0.8) 12/19/16 04:11 Eosinophils # (Manual) 0.0 K/mm3 (0.0-0.4) 12/19/16 04:11 Basophils # (Manual) 0.0 K/mm3 (0.0-0.1) 12/19/16 04:11 Metamyelocytes # 0.0 K/mm3 12/19/16 04:11 Myelocytes # 0.0 K/mm3 12/19/16 04:11 Promyelocytes # 0.0 K/mm3 12/19/16 04:11 Blast Cells # 0.0 K/mm3 12/19/16 04:11 WBC Morphology Not Reportable 12/19/16 04:11 Hypersegmented Neuts Not Reportable 12/19/16 04:11 Hyposegmented Neuts Not Reportable 12/19/16 04:11 Hypogranular Neuts Not Reportable 12/19/16 04:11 Smudge Cells Not Reportable 12/19/16 04:11 Toxic Granulation Not Reportable 12/19/16 04:11 Toxic Vacuolation Not Reportable 12/19/16 04:11 Dohle Bodies Not Reportable 12/19/16 04:11 Pelger-Huet Anomaly Not Reportable 12/19/16 04:11 Maynor Rods Not Reportable 12/19/16 04:11 Platelet Estimate Consistent w auto 12/19/16 04:11 Clumped Platelets Not Reportable 12/19/16 04:11 Plt Clumps, EDTA Not Reportable 12/19/16 04:11 Large Platelets Not Reportable 12/19/16 04:11 Giant Platelets Not Reportable 12/19/16 04:11 Platelet Satelliting Not Reportable 12/19/16 04:11 Plt Morphology Comment Not Reportable 12/19/16 04:11 RBC Morphology Not Reportable 12/19/16 04:11 Dimorphic RBCs Not Reportable 12/19/16 04:11 Polychromasia Not Reportable 12/19/16 04:11 Hypochromasia 1+ 12/19/16 04:11 Poikilocytosis Not Reportable 12/19/16 04:11 Anisocytosis 1+ 12/19/16 04:11 Microcytosis Not Reportable 12/19/16 04:11 Macrocytosis Not Reportable 12/19/16 04:11 Spherocytes Not Reportable 12/19/16 04:11 Pappenheimer Bodies Not Reportable 12/19/16 04:11 Sickle Cells Not Reportable 12/19/16 04:11 Target Cells Not Reportable 12/19/16 04:11 Tear Drop Cells Not Reportable 12/19/16 04:11 Ovalocytes Not Reportable 12/19/16 04:11 Helmet Cells Not Reportable 12/19/16 04:11 [place] Bodies Not Reportable 12/19/16 04:11 [place] Rings Not Reportable 12/19/16 04:11 Axia Cells Not Reportable 12/19/16 04:11 Bite Cells Not Reportable 12/19/16 04:11 Crenated Cell Not Reportable 12/19/16 04:11 Elliptocytes Not Reportable 12/19/16 04:11 Acanthocytes (Spur) Not Reportable 12/19/16 04:11 Rouleaux Not Reportable 12/19/16 04:11 Hemoglobin C Crystals Not Reportable 12/19/16 04:11 Schistocytes Not Reportable 12/19/16 04:11 Malaria parasites Not Reportable 12/19/16 04:11 Leroy Bodies Not Reportable 12/19/16 04:11 Hem Pathologist Commnt No 12/19/16 04:11 PT 18.2 Sec. (12.2-14.9) H 12/18/16 12:30 INR 1.43 (0.87-1.13) H 12/18/16 12:30 APTT 52.8 Sec. (24.2-36.6) H 12/18/16 12:30 Sodium 141 mmol/L (137-145) 12/19/16 07:11 Potassium 3.3 mmol/L (3.6-5.0) L 12/19/16 07:11 Chloride 99.1 mmol/L (98-107) 12/19/16 07:11 Carbon Dioxide 29 mmol/L (22-30) 12/19/16 07:11 Anion Gap 16 mmol/L 12/19/16 07:11 BUN 12 mg/dL (7-17) 12/19/16 07:11 Creatinine 0.8 mg/dL (0.7-1.2) 12/19/16 07:11 Estimated GFR > 60 ml/min 12/19/16 07:11 BUN/Creatinine Ratio 15.00 % 12/19/16 07:11 Glucose 91 mg/dL (65-100) 12/19/16 07:11 Calcium 8.8 mg/dL (8.4-10.2) 12/19/16 07:11 Iron 78 ug/dL (37-170) 12/19/16 07:11 TIBC 179.20 mcg/dL (250-450) L 12/19/16 07:11 % Saturation 43.53 % 12/19/16 07:11 Transferrin 128 mg/dl (192-382) L 12/19/16 07:11 Total Bilirubin 0.20 mg/dL (0.1-1.2) 12/19/16 04:11 AST 13 units/L (5-40) 12/19/16 04:11 ALT 8 units/L (7-56) 12/19/16 04:11 Alkaline Phosphatase 56 units/L (35-129) 12/19/16 04:11 Total Creatine Kinase 49 units/L (30-135) 12/18/16 12:30 CK-MB (CK-2) < 1.0 ng/mL (0.0-4.0) 12/18/16 12:30 CK-MB (CK-2) Rel Index 2.0 (0-4) 12/18/16 12:30 Troponin T < 0.010 ng/mL (0.00-0.029) 12/18/16 12:30 NT-Pro-B Natriuret Pep 234.0 pg/mL (0-900) 12/18/16 12:30 Total Protein 6.7 g/dL (6.3-8.2) 12/19/16 04:11 Albumin 2.9 g/dL (3.9-5) L 12/19/16 04:11 Albumin/Globulin Ratio 0.8 % 12/19/16 04:11 TSH 1.350 mlU/mL (0.270-4.200) 12/18/16 12:30 Free T4 1.56 ng/dL (0.76-1.46) H 12/18/16 12:30 Urine Color Yellow (Yellow) 12/18/16 12:46 Urine Turbidity Clear (Clear) 12/18/16 12:46 Urine pH 7.0 (5.0-7.0) 12/18/16 12:46 Ur Specific [place] 1.016 (1.003-1.030) 12/18/16 12:46 Urine Protein 30 mg/dl mg/dL (Negative) 12/18/16 12:46 Urine Glucose (UA) Neg mg/dL (Negative) 12/18/16 12:46 Urine Ketones Neg mg/dL (Negative) 12/18/16 12:46 Urine Blood Sm (Negative) 12/18/16 12:46 Urine Nitrite Neg (Negative) 12/18/16 12:46 Urine Bilirubin Neg (Negative) 12/18/16 12:46 Urine Urobilinogen < 2.0 mg/dL (<2.0) 12/18/16 12:46 Ur Leukocyte Esterase Neg (Negative) 12/18/16 12:46 Urine WBC (Auto) < 1.0 /HPF (0.0-6.0) 12/18/16 12:46 Urine RBC (Auto) < 1.0 /HPF (0.0-6.0) 12/18/16 12:46 Blood Type O POSITIVE 12/18/16 12:30 Antibody Screen TNR 12/18/16 12:30 DOMINIQUE Antibody Screen Negative 12/18/16 12:30 Crossmatch See Detail 12/18/16 12:30
[2016-12-19] MEDS: GRANIX SUB-Q SCH (15:34)
[2016-12-19 15:58] LABS: Hematocrit 24.7 % (30.3-42.9); Hemoglobin 8.4 gm/dl (10.1-14.3)
[2016-12-20] MEDS: OYSCO D 500 MG-200 UNIT PO SCH ×3 (00:46→23:07)
[2016-12-20] MEDS: K-DUR PO SCH ×3 (00:49→23:07)
[2016-12-20 10:11] LABS: Hematocrit 27.5 % (30.3-42.9); Hemoglobin 9.2 gm/dl (10.1-14.3); Mean Corpuscular HGB Conc 33 % (30-34); Mean Corpuscular Hemoglobin 29 pg (28-32); Mean Corpuscular Volume 88 fl (79-97); Platelet Count 146 K/mm3 (140-440); Red Blood Count 3.12 M/mm3 (3.65-5.03); Red Cell Distribution Width 17.6 % (13.2-15.2)
[2016-12-20 10:12] LABS: White Blood Count 1.4 K/mm3 (4.5-11.0)
[2016-12-20 10:22] LABS: Anion Gap 17 mmol/L; Blood Urea Nitrogen 9 mg/dL (7-17); Calcium 8.5 mg/dL (8.4-10.2); Carbon Dioxide 24 mmol/L (22-30); Chloride 103.3 mmol/L (98-107); Glucose 87 mg/dL (65-100); Potassium 3.2 mmol/L (3.6-5.0); Sodium 141 mmol/L (137-145)
--- NOTE | 2016-12-20 10:42 | Consultation ---
History of Present Illness - Reason for Consult Consult date: 12/20/16 h/o DVT Requesting physician: LYNSEY MILES - History of Present Illness 71y female admitted for generalized weakness after initiation of chemotherapy. Patient has uterine Ca, had hysterectomy in August this year and was scheduled for chemoradiation. She was found to be pancytopenic. During her hospitalization for radiation therapy in [facility] she was found to have DVT 2 months ago, but not sure of exact location or side. She was started on Pradaxa. She has been receiving blood products now for pancytopenia. Now she cannot continue anticoagulation. vascular surgery consulted for possible IVC filter placement. Past History Past Medical History: cancer, hypertension, other (Uterine cancer diagnosed in July 2016) Medications and Allergies Allergies Allergy/AdvReac Type Severity Reaction Status Date / Time No Known Allergies Allergy Unverified 12/18/16 12:25 Home Medications Medication Instructions Recorded Confirmed Last Taken Type Atenolol [Tenormin] 100 mg PO DAILY 12/18/16 12/18/16 12/18/16 06:00 History 100mg Calcium Carbonate/Vitamin D3 1 each PO BID 12/18/16 12/18/16 12/18/16 06:00 History [Calcium 600-Vit D3 800 Tablet] 1 tab Dabigatran [Pradaxa] 150 mg PO BID 12/18/16 12/18/16 12/18/16 06:00 History 150mg Losartan [Cozaar] 50 mg PO QDAY 12/18/16 12/18/16 12/18/16 05:45 History 50mg Potassium Chloride [K-Dur] 10 meq PO BID 12/18/16 12/18/16 12/18/16 06:00 History 10meq Active Meds: Active Medications Acetaminophen (Tylenol) 650 mg PO Q4H PRN PRN Reason: Pain MILD(1-3)/Fever >100.5/MILLARD Atenolol (Tenormin) 100 mg PO QDAY [facility] Last Admin: 12/19/16 10:14 Dose: Not Given Bisacodyl (Dulcolax) 10 mg NE QDAY PRN PRN Reason: Constipation unrelieved by MOM Calcium/Vitamin D ([place] D 500 Mg-200 Unit) 1 each PO BID [facility] Last Admin: 12/20/16 00:46 Dose: 1 each Hydromorphone HCl (Dilaudid) 0.5 mg IV Q3H PRN PRN Reason: Pain , Severe (7-10) Losartan Potassium (Cozaar) 50 mg PO QDAY [facility] Last Admin: 12/19/16 10:15 Dose: Not Given Magnesium Hydroxide (Milk Of Magnesia) 30 ml PO Q4H PRN PRN Reason: Constipation Ondansetron HCl (Zofran) 4 mg IV Q8H PRN PRN Reason: N/V unrelieved by Reglan Oxycodone/Acetaminophen (Percocet 5/325) 1 tab PO Q6H PRN PRN Reason: Pain, Moderate (4-6) Potassium Chloride (K-Dur) 10 meq PO BID [facility] Last Admin: 12/20/16 00:49 Dose: 10 meq Tbo-Filgrastim (Granix) 480 mcg SUB-Q DAILY [facility] Last Admin: 12/19/16 15:34 Dose: 480 mcg Exam - Constitutional Vitals: Temp Pulse Resp BP Pulse Ox 97.8 F 66 20 128/76 100 12/20/16 10:00 12/20/16 10:00 12/20/16 10:00 12/20/16 10:00 12/20/16 07:15 - Extremities Extremities: pulses intact Extremity abnormal: edema (left calf) Results - Labs CBC & Chem 7: 12/20/16 09:57 12/20/16 09:57 Labs: Abnormal lab results 12/19/16 12/20/16 12/20/16 Range/Units 15:27 09:57 09:57 WBC 1.4 L* (4.5-11.0) K/mm3 RBC 3.12 L (3.65-5.03) M/mm3 Hgb 8.4 L 9.2 L (10.1-14.3) gm/dl Hct 24.7 L 27.5 L (30.3-42.9) % RDW 17.6 H (13.2-15.2) % Potassium 3.2 L (3.6-5.0) mmol/L Creatinine 0.6 L (0.7-1.2) mg/dL Assessment and Plan 71y female with uterine Ca and course of chemoradiation, pancytopenic h/o DVT Plan for venous duplex to define location of DVT she is most likely has venous compression from intrabdominal process. No IVC filter plan for now. I will follow venous duplex.
--- NOTE | 2016-12-20 10:52 | Hem/Onc Progress Note ---
Assessment and Plan hgb and plts improved with transfusion wbc still low- cont neupogen doppler L leg d/w vascular surgery- not a good candidate for ivc filter due to i/abd process Subjective Date of service: 12/20/16 Interval history: pt received plts and 2 units of prbc feels better Objective - Exam Narrative Exam: better - Constitutional Vitals: Last Vital Signs Temp 97.8 F 12/20/16 10:00 Pulse 66 12/20/16 10:00 Resp 20 12/20/16 10:00 BP 128/76 12/20/16 10:00 Pulse Ox 100 12/20/16 07:15 Performance status: 2- selfcare, ambulatory - Neck Neck: supple - Respiratory Respiratory effort: Positive: normal Respiratory: bilateral: diminished - Cardiovascular Rhythm: regular Extremities: abnormal (l leg swelling) - Gastrointestinal General gastrointestinal: Present: distended (non tender) - Labs Lab Results: Laboratory Results - last 24 hr 12/19/16 12/19/16 12/20/16 07:11 15:27 09:57 WBC 1.4 L* RBC 3.12 L Hgb 8.4 L 9.2 L Hct 24.7 L 27.5 L MCV 88 MCH 29 MCHC 33 RDW 17.6 H Plt Count 146 D Sodium Potassium Chloride Carbon Dioxide Anion Gap BUN Creatinine Estimated GFR BUN/Creatinine Ratio Glucose Calcium Iron 78 % Saturation 43.53 12/20/16 09:57 WBC RBC Hgb Hct MCV MCH MCHC RDW Plt Count Sodium 141 Potassium 3.2 L Chloride 103.3 Carbon Dioxide 24 Anion Gap 17 BUN 9 Creatinine 0.6 L Estimated GFR > 60 BUN/Creatinine Ratio 15.00 Glucose 87 Calcium 8.5 Iron % Saturation
[2016-12-20] MEDS: TENORMIN PO SCH (11:16)
[2016-12-20] MEDS: COZAAR PO SCH (11:17)
[2016-12-20] MEDS: GRANIX SUB-Q SCH (11:18)
[2016-12-20 12:10] LABS: Anisocytosis 1+; Basophils % (Manual) 0 % (0.0-1.8); Blastocytes % (Manual) 0 %
[2016-12-20 12:11] LABS: Diff Status Complete; Hypochromasia 1+; Platelet Estimate Consistent w Auto
--- NOTE | 2016-12-20 18:57 | Progress Note ---
Assessment and Plan Assessment and plan: The patient is a 71-year-old female presenting with a chief complaint of weakness. She has uterine cancer that was diagnosed in July 2016, and is currently receiving chemotherapy and with the hospital, she received higher fifth cycle of chemotherapy on December 08, she does not think she received Neulasta she has never heard of it Symptomatic anemia, RAULITO hemoglobin 6.5 Sec to chemo therapy . Status post multiple transfusions, hemoglobin now improved to 9 TIBC low indicative of anemia of chronic disease, thyroid function tests are normal Pancytopenia, neutropenia, thrombocytopenia Hematology Oncology input appreciated, continue Neupogen, status post platelet transfusion, with improvement in platelet counts She is still neutropenic HTN (hypertension) Cont Losartan and other anti hypertensives Hypokalemia continue supplement Uterine cancer Outpatient follow-up with her oncologist at [facility] Acute LE dvt Venous US, image reviewed: ACUTE DVT IN THE LT.DISTAL ILIAC VEIN ,LT.CFV AND LT.POPLITEAL VEIN.SVT IN THE LT.PX GSV AT LT. PX THIGH. THICK ,SWIRLING BLOOD ( ROULEAUX FORMATION) NOTED IN THE LT.GROIN VESSELS pradaxa on hold due to thrombocytopenia Case was discussed with vascular surgery, IVC filter device she contraindicated in malignancy as it is a nidus for thrombosis, however she is currently thrombocytopenic due to recent chemotherapy When her thrombocytopenia resolves anticoagulation may be started by her travel registered nurse nicu as an outpatient DVT prophylaxis No lovenox or Heparin.Only SCD's in light of thrombocytopenia History Interval history: She feels well, weakness has now resolved, denies dyspnea on exertion Hospitalist Physical - Physical exam Narrative exam: General: Patient appears well in no distress HEENT: MMM, EOMI cardiac: S1-S2 heard lungs: clear to auscultation, abdomen: soft, nontender, nondistended bowel sounds positive extremities: no edema clubbing or cyanosis Skin: no rash or lesion Neuro: no focal deficit Psych: appropriate behavior and mood, cognition intact - Constitutional Vitals: Temp Pulse Resp BP Pulse Ox 97.8 F 66 20 128/76 100 12/20/16 10:00 12/20/16 11:17 12/20/16 10:00 12/20/16 11:12/20/16 07:15 General appearance: Present: no acute distress, well-nourished Results - Labs CBC & Chem 7: 12/21/16 07:34 08/10/17 09:57 Labs: Laboratory Last Values WBC 1.4 K/mm3 (4.5-11.0) L* 12/20/16 09:57 RBC 3.12 M/mm3 (3.65-5.03) L 12/20/16 09:57 Hgb 9.2 gm/dl (10.1-14.3) L 12/20/16 09:57 Hct 27.5 % (30.3-42.9) L 12/20/16 09:57 MCV 88 fl (79-97) 12/20/16 09:57 MCH 29 pg (28-32) 12/20/16 09:57 MCHC 33 % (30-34) 12/20/16 09:57 RDW 17.6 % (13.2-15.2) H 12/20/16 09:57 Plt Count 146 K/mm3 (140-440) D 12/20/16 09:57 Add Manual Diff Complete 12/20/16 09:57 Total Counted 100 12/20/16 09:57 Seg Neuts % (Manual) 45.0 % (40.0-70.0) 12/20/16 09:57 Band Neutrophils % 3.0 % 12/20/16 09:57 Lymphocytes % (Manual) 41.0 % (13.4-35.0) H 12/20/16 09:57 Reactive Lymphs % (Man) 3.0 % 12/20/16 09:57 Monocytes % (Manual) 4.0 % (0.0-7.3) 12/20/16 09:57 Eosinophils % (Manual) 4.0 % (0.0-4.3) 12/20/16 09:57 Basophils % (Manual) 0 % (0.0-1.8) 12/20/16 09:57 Metamyelocytes % 0 % 12/20/16 09:57 Myelocytes % 0 % 12/20/16 09:57 Promyelocytes % 0 % 12/20/16 09:57 Blast Cells % 0 % 12/20/16 09:57 Nucleated RBC % Not Reportable 12/20/16 09:57 Seg Neutrophils # Man 0.6 K/mm3 (1.8-7.7) L 12/20/16 09:57 Band Neutrophils # 0.0 K/mm3 12/20/16 09:57 Lymphocytes # (Manual) 0.6 K/mm3 (1.2-5.4) L 12/20/16 09:57 Abs React Lymphs (Man) 0.0 K/mm3 12/20/16 09:57 Monocytes # (Manual) 0.1 K/mm3 (0.0-0.8) 12/20/16 09:57 Eosinophils # (Manual) 0.1 K/mm3 (0.0-0.4) 12/20/16 09:57 Basophils # (Manual) 0.0 K/mm3 (0.0-0.1) 12/20/16 09:57 Metamyelocytes # 0.0 K/mm3 12/20/16 09:57 Myelocytes # 0.0 K/mm3 12/20/16 09:57 Promyelocytes # 0.0 K/mm3 12/20/16 09:57 Blast Cells # 0.0 K/mm3 12/20/16 09:57 WBC Morphology Not Reportable 12/20/16 09:57 Hypersegmented Neuts Not Reportable 12/20/16 09:57 Hyposegmented Neuts Not Reportable 12/20/16 09:57 Hypogranular Neuts Not Reportable 12/20/16 09:57 Smudge Cells Not Reportable 12/20/16 09:57 Toxic Granulation Not Reportable 12/20/16 09:57 Toxic Vacuolation Not Reportable 12/20/16 09:57 Dohle Bodies Not Reportable 12/20/16 09:57 Pelger-Huet Anomaly Not Reportable 12/20/16 09:57 Maynor Rods Not Reportable 12/20/16 09:57 Platelet Estimate Consistent w auto 12/20/16 09:57 Clumped Platelets Not Reportable 12/20/16 09:57 Plt Clumps, EDTA Not Reportable 12/20/16 09:57 Large Platelets Not Reportable 12/20/16 09:57 Giant Platelets Not Reportable 12/20/16 09:57 Platelet Satelliting Not Reportable 12/20/16 09:57 Plt Morphology Comment Not Reportable 12/20/16 09:57 RBC Morphology Not Reportable 12/20/16 09:57 Dimorphic RBCs Not Reportable 12/20/16 09:57 Polychromasia Not Reportable 12/20/16 09:57 Hypochromasia 1+ 12/20/16 09:57 Poikilocytosis Not Reportable 12/20/16 09:57 Anisocytosis 1+ 12/20/16 09:57 Microcytosis Not Reportable 12/20/16 09:57 Macrocytosis Not Reportable 12/20/16 09:57 Spherocytes Not Reportable 12/20/16 09:57 Pappenheimer Bodies Not Reportable 12/20/16 09:57 Sickle Cells Not Reportable 12/20/16 09:57 Target Cells Not Reportable 12/20/16 09:57 Tear Drop Cells Not Reportable 12/20/16 09:57 Ovalocytes Not Reportable 12/20/16 09:57 Helmet Cells Not Reportable 12/20/16 09:57 [place] Bodies Not Reportable 12/20/16 09:57 [place] Rings Not Reportable 12/20/16 09:57 [place] Cells Not Reportable 12/20/16 09:57 Bite Cells Not Reportable 12/20/16 09:57 Crenated Cell Not Reportable 12/20/16 09:57 Elliptocytes Not Reportable 12/20/16 09:57 Acanthocytes (Spur) Not Reportable 12/20/16 09:57 Rouleaux Not Reportable 12/20/16 09:57 Hemoglobin C Crystals Not Reportable 12/20/16 09:57 Schistocytes Not Reportable 12/20/16 09:57 Malaria parasites Not Reportable 12/20/16 09:57 Leroy Bodies Not Reportable 12/20/16 09:57 Hem Pathologist Commnt No 12/20/16 09:57 PT 18.2 Sec. (12.2-14.9) H 12/18/16 12:30 INR 1.43 (0.87-1.13) H 12/18/16 12:30 APTT 52.8 Sec. (24.2-36.6) H 12/18/16 12:30 Sodium 141 mmol/L (137-145) 12/20/16 09:57 Potassium 3.2 mmol/L (3.6-5.0) L 12/20/16 09:57 Chloride 103.3 mmol/L (98-107) 12/20/16 09:57 Carbon Dioxide 24 mmol/L (22-30) 12/20/16 09:57 Anion Gap 17 mmol/L 12/20/16 09:57 BUN 9 mg/dL (7-17) 12/20/16 09:57 Creatinine 0.6 mg/dL (0.7-1.2) L 12/20/16 09:57 Estimated GFR > 60 ml/min 12/20/16 09:57 BUN/Creatinine Ratio 15.00 % 12/20/16 09:57 Glucose 87 mg/dL (65-100) 12/20/16 09:57 Calcium 8.5 mg/dL (8.4-10.2) 12/20/16 09:57 Iron 78 ug/dL (37-170) 12/19/16 07:11 TIBC 179.20 mcg/dL (250-450) L 12/19/16 07:11 % Saturation 43.53 % 12/19/16 07:11 Transferrin 128 mg/dl (192-382) L 12/19/16 07:11 Total Bilirubin 0.20 mg/dL (0.1-1.2) 12/19/16 04:11 AST 13 units/L (5-40) 12/19/16 04:11 ALT 8 units/L (7-56) 12/19/16 04:11 Alkaline Phosphatase 56 units/L (35-129) 12/19/16 04:11 Total Creatine Kinase 49 units/L (30-135) 12/18/16 12:30 CK-MB (CK-2) < 1.0 ng/mL (0.0-4.0) 12/18/16 12:30 CK-MB (CK-2) Rel Index 2.0 (0-4) 12/18/16 12:30 Troponin T < 0.010 ng/mL (0.00-0.029) 12/18/16 12:30 NT-Pro-B Natriuret Pep 234.0 pg/mL (0-900) 12/18/16 12:30 Total Protein 6.7 g/dL (6.3-8.2) 12/19/16 04:11 Albumin 2.9 g/dL (3.9-5) L 12/19/16 04:11 Albumin/Globulin Ratio 0.8 % 12/19/16 04:11 TSH 1.350 mlU/mL (0.270-4.200) 12/18/16 12:30 Free T4 1.56 ng/dL (0.76-1.46) H 12/18/16 12:30 Urine Color Yellow (Yellow) 12/18/16 12:46 Urine Turbidity Clear (Clear) 12/18/16 12:46 Urine pH 7.0 (5.0-7.0) 12/18/16 12:46 Ur Specific [place] 1.016 (1.003-1.030) 12/18/16 12:46 Urine Protein 30 mg/dl mg/dL (Negative) 12/18/16 12:46 Urine Glucose (UA) Neg mg/dL (Negative) 12/18/16 12:46 Urine Ketones Neg mg/dL (Negative) 12/18/16 12:46 Urine Blood Sm (Negative) 12/18/16 12:46 Urine Nitrite Neg (Negative) 12/18/16 12:46 Urine Bilirubin Neg (Negative) 12/18/16 12:46 Urine Urobilinogen < 2.0 mg/dL (<2.0) 12/18/16 12:46 Ur Leukocyte Esterase Neg (Negative) 12/18/16 12:46 Urine WBC (Auto) < 1.0 /HPF (0.0-6.0) 12/18/16 12:46 Urine RBC (Auto) < 1.0 /HPF (0.0-6.0) 12/18/16 12:46 Blood Type O POSITIVE 12/18/16 12:30 Antibody Screen TNR 12/18/16 12:30 DOMINIQUE Antibody Screen Negative 12/18/16 12:30 Crossmatch See Detail 12/18/16 12:30
[2016-12-21 07:58] LABS: Hemoglobin 9.5 gm/dl (10.1-14.3); Platelet Count 123 K/mm3 (140-440)
[2016-12-21 08:13] LABS: Hematocrit 28.2 % (30.3-42.9); Mean Corpuscular HGB Conc 34 % (30-34); Mean Corpuscular Hemoglobin 30 pg (28-32); Mean Corpuscular Volume 90 fl (79-97); Red Blood Count 3.13 M/mm3 (3.65-5.03); Red Cell Distribution Width 17.3 % (13.2-15.2)
--- NOTE | 2016-12-21 09:07 | Vascular Lab Report ---
LOWER EXTREMITY VENOUS DUPLEX: REASON FOR EXAM: Edema of the lower extremities. COMMENTS ON THE RIGHT: All veins visualized are freely compressible without evidence of internal echogenicity. Flow is spontaneous and phasic throughout. COMMENTS ON THE LEFT: A acute deep venous thrombosis is noted in the femoral, common femoral external iliac veins, as well as the popliteal vein. Superficial thrombophlebitis noted in the proximal greater saphenous vein including saphenous femoral junction.. The remaining veins visualized are freely compressible without evidence of internal echogenicity. Spontaneous and phasic flow is absent proximally. IMPRESSION: Acute deep and superficial venous thrombosis in the left lower extremity
--- NOTE | 2016-12-21 09:38 | Hem/Onc Progress Note ---
Assessment and Plan Continue neutropenic precautions. Continue Neupogen. Follow counts. Platelets stable. Continue anticoagulant's. Watch for bleeding Subjective Date of service: 12/21/16 Interval history: Patient feels fair. Continues to be neutropenic. Objective - Exam Narrative Exam: better - Constitutional Vitals: Last Vital Signs Temp 97.9 F 12/20/16 22:00 Pulse 69 12/20/16 22:00 Resp 20 12/20/16 22:00 BP 124/63 12/20/16 22:00 Pulse Ox 100 12/20/16 22:00 General appearance: no acute distress Performance status: 3-limited selfcare - Neck Neck: supple - Respiratory Respiratory: bilateral: CTA - Cardiovascular Rhythm: regular Extremities: abnormal (left leg swelling) - Gastrointestinal General gastrointestinal: Present: distended (nodular) - Labs Lab Results: Laboratory Results - last 24 hr 12/20/16 12/20/16 12/21/16 09:57 09:57 07:34 WBC 1.4 L* RBC 3.12 L 3.13 L Hgb 9.2 L 9.5 L Hct 27.5 L 28.2 L MCV 88 90 MCH 29 30 MCHC 33 34 RDW 17.6 H 17.3 H Plt Count 146 D 123 L Add Manual Diff Complete Total Counted 100 Seg Neutrophils % Coil Connector Repairer Seg Neuts % (Manual) 45.0 Band Neutrophils % 3.0 Lymphocytes % (Manual) 41.0 H Reactive Lymphs % (Man) 3.0 Monocytes % (Manual) 4.0 Eosinophils % (Manual) 4.0 Basophils % (Manual) 0 Metamyelocytes % 0 Myelocytes % 0 Promyelocytes % 0 Blast Cells % 0 Nucleated RBC % Not Reportable Seg Neutrophils # Man 0.6 L Band Neutrophils # 0.0 Lymphocytes # (Manual) 0.6 L Abs React Lymphs (Man) 0.0 Monocytes # (Manual) 0.1 Eosinophils # (Manual) 0.1 Basophils # (Manual) 0.0 Metamyelocytes # 0.0 Myelocytes # 0.0 Promyelocytes # 0.0 Blast Cells # 0.0 WBC Morphology Not Reportable Hypersegmented Neuts Not Reportable Hyposegmented Neuts Not Reportable Hypogranular Neuts Not Reportable Smudge Cells Not Reportable Toxic Granulation Not Reportable Toxic Vacuolation Not Reportable Dohle Bodies Not Reportable Pelger-Huet Anomaly Not Reportable Maynor Rods Not Reportable Platelet Estimate Consistent w auto Clumped Platelets Not Reportable Plt Clumps, EDTA Not Reportable Large Platelets Not Reportable Giant Platelets Not Reportable Platelet Satelliting Not Reportable Plt Morphology Comment Not Reportable RBC Morphology Not Reportable Dimorphic RBCs Not Reportable Polychromasia Not Reportable Hypochromasia 1+ Poikilocytosis Not Reportable Anisocytosis 1+ Microcytosis Not Reportable Macrocytosis Not Reportable Spherocytes Not Reportable Pappenheimer Bodies Not Reportable Sickle Cells Not Reportable Target Cells Not Reportable Tear Drop Cells Not Reportable Ovalocytes Not Reportable Helmet Cells Not Reportable [place] Bodies Not Reportable [place] Rings Not Reportable [place] Cells Not Reportable Bite Cells Not Reportable Crenated Cell Not Reportable Elliptocytes Not Reportable Acanthocytes (Spur) Not Reportable Rouleaux Not Reportable Hemoglobin C Crystals Not Reportable Schistocytes Not Reportable Malaria parasites Not Reportable Leroy Bodies Not Reportable Hem Pathologist Commnt No Sodium 141 Potassium 3.2 L Chloride 103.3 Carbon Dioxide 24 Anion Gap 17 BUN 9 Creatinine 0.6 L Estimated GFR > 60 BUN/Creatinine Ratio 15.00 Glucose 87 Calcium 8.5
[2016-12-21 09:39] LABS: Basophils % (Manual) 0 % (0.0-1.8); Blastocytes % (Manual) 0 %
[2016-12-21 09:40] LABS: Anisocytosis 3+; Diff Status Complete; Hypochromasia 1+
[2016-12-21] MEDS: GRANIX SUB-Q SCH (10:17)
[2016-12-21] MEDS: K-DUR PO SCH ×2 (10:18→23:20)
[2016-12-21] MEDS: OYSCO D 500 MG-200 UNIT PO SCH ×2 (10:18→23:20)
[2016-12-21] MEDS: TENORMIN PO SCH (10:19)
[2016-12-21] MEDS: COZAAR PO SCH (10:19)
--- NOTE | 2016-12-21 12:12 | Progress Note ---
Assessment and Plan Assessment and plan: The patient is a 71-year-old female presenting with a chief complaint of weakness. She has uterine cancer that was diagnosed in July 2016, and is currently receiving chemotherapy and with the hospital, she received higher fifth cycle of chemotherapy on December 08, she does not think she received Neulasta she has never heard of it. Her Oncologist is Dr. Huizar at [facility] Symptomatic anemia, RAULITO hemoglobin 6.5 Sec to chemo therapy . Status post multiple transfusions, hemoglobin now improved to 9 TIBC low indicative of anemia of chronic disease, thyroid function tests are normal Pancytopenia, neutropenia, thrombocytopenia Hematology Oncology input appreciated, continue Neupogen, status post platelet transfusion, with improvement in platelet counts She is still neutropenic HTN (hypertension) Cont Losartan and other anti hypertensives Hypokalemia continue supplement Uterine cancer Outpatient follow-up with her oncologist at [facility] Acute LE dvt Venous US, image reviewed: ACUTE DVT IN THE LT.DISTAL ILIAC VEIN ,LT.CFV AND LT.POPLITEAL VEIN.SVT IN THE LT.PX GSV AT LT. PX THIGH. THICK ,SWIRLING BLOOD ( ROULEAUX FORMATION) NOTED IN THE LT.GROIN VESSELS pradaxa on hold due to thrombocytopenia Case was discussed with vascular surgery, IVC filter device she contraindicated in malignancy as it is a nidus for thrombosis, however she is currently thrombocytopenic due to recent chemotherapy When her thrombocytopenia resolves anticoagulation may be started by her mental telepathist as an outpatient DVT prophylaxis No lovenox or Heparin.Only SCD's in light of thrombocytopenia History Interval history: She feels well, weakness has now resolved, denies dyspnea on exertion Hospitalist Physical - Physical exam Narrative exam: General: Patient appears well in no distress HEENT: MMM, EOMI cardiac: S1-S2 heard lungs: clear to auscultation, abdomen: soft, nontender, nondistended bowel sounds positive extremities: no edema clubbing or cyanosis Skin: no rash or lesion Neuro: no focal deficit Psych: appropriate behavior and mood, cognition intact - Constitutional Vitals: Temp Pulse Resp BP Pulse Ox 98 F 67 16 118/57 100 12/21/16 10:00 12/21/16 10:00 12/21/16 10:00 12/21/16 10:00 12/21/16 10:00 General appearance: Present: no acute distress, well-nourished Results - Labs CBC & Chem 7: 12/21/16 07:34 12/20/16 09:57 Labs: Laboratory Last Values WBC K/mm3 (4.5-11.0) 12/21/16 07:34 RBC 3.13 M/mm3 (3.65-5.03) L 12/21/16 07:34 Hgb 9.5 gm/dl (10.1-14.3) L 12/21/16 07:34 Hct 28.2 % (30.3-42.9) L 12/21/16 07:34 MCV 90 fl (79-97) 12/21/16 07:34 MCH 30 pg (28-32) 12/21/16 07:34 MCHC 34 % (30-34) 12/21/16 07:34 RDW 17.3 % (13.2-15.2) H 12/21/16 07:34 Plt Count 123 K/mm3 (140-440) L 12/21/16 07:34 Add Manual Diff Complete 12/21/16 07:34 Total Counted 100 12/21/16 07:34 Seg Neutrophils % Catering Server 12/21/16 07:34 Seg Neuts % (Manual) 21.0 % (40.0-70.0) L 12/21/16 07:34 Band Neutrophils % 11.0 % 12/21/16 07:34 Lymphocytes % (Manual) 57.0 % (13.4-35.0) H 12/21/16 07:34 Reactive Lymphs % (Man) 1.0 % 12/21/16 07:34 Monocytes % (Manual) 8.0 % (0.0-7.3) H 12/21/16 07:34 Eosinophils % (Manual) 2.0 % (0.0-4.3) 12/21/16 07:34 Basophils % (Manual) 0 % (0.0-1.8) 12/21/16 07:34 Metamyelocytes % 0 % 12/21/16 07:34 Myelocytes % 0 % 12/21/16 07:34 Promyelocytes % 0 % 12/21/16 07:34 Blast Cells % 0 % 12/21/16 07:34 Nucleated RBC % Not Reportable 12/21/16 07:34 Seg Neutrophils # Man 0.0 K/mm3 (1.8-7.7) L 12/21/16 07:34 Band Neutrophils # 0.0 K/mm3 12/21/16 07:34 Lymphocytes # (Manual) 0.0 K/mm3 (1.2-5.4) L 12/21/16 07:34 Abs React Lymphs (Man) 0.0 K/mm3 12/21/16 07:34 Monocytes # (Manual) 0.0 K/mm3 (0.0-0.8) 12/21/16 07:34 Eosinophils # (Manual) 0.0 K/mm3 (0.0-0.4) 12/21/16 07:34 Basophils # (Manual) 0.0 K/mm3 (0.0-0.1) 12/21/16 07:34 Metamyelocytes # 0.0 K/mm3 12/21/16 07:34 Myelocytes # 0.0 K/mm3 12/21/16 07:34 Promyelocytes # 0.0 K/mm3 12/21/16 07:34 Blast Cells # 0.0 K/mm3 12/21/16 07:34 WBC Morphology Not Reportable 12/21/16 07:34 Hypersegmented Neuts Not Reportable 12/21/16 07:34 Hyposegmented Neuts Not Reportable 12/21/16 07:34 Hypogranular Neuts Not Reportable 12/21/16 07:34 Smudge Cells Not Reportable 12/21/16 07:34 Toxic Granulation Not Reportable 12/21/16 07:34 Toxic Vacuolation Not Reportable 12/21/16 07:34 Dohle Bodies Not Reportable 12/21/16 07:34 Pelger-Huet Anomaly Not Reportable 12/21/16 07:34 Maynor Rods Not Reportable 12/21/16 07:34 Platelet Estimate Appears normal 12/21/16 07:34 Clumped Platelets Not Reportable 12/21/16 07:34 Plt Clumps, EDTA Not Reportable 12/21/16 07:34 Large Platelets Not Reportable 12/21/16 07:34 Giant Platelets Not Reportable 12/21/16 07:34 Platelet Satelliting Not Reportable 12/21/16 07:34 Plt Morphology Comment Not Reportable 12/21/16 07:34 RBC Morphology Not Reportable 12/21/16 07:34 Dimorphic RBCs Not Reportable 12/21/16 07:34 Polychromasia Not Reportable 12/21/16 07:34 Hypochromasia 1+ 12/21/16 07:34 Poikilocytosis Not Reportable 12/21/16 07:34 Anisocytosis 3+ 12/21/16 07:34 Microcytosis Not Reportable 12/21/16 07:34 Macrocytosis Not Reportable 12/21/16 07:34 Spherocytes Not Reportable 12/21/16 07:34 Pappenheimer Bodies Not Reportable 12/21/16 07:34 Sickle Cells Not Reportable 12/21/16 07:34 Target Cells Not Reportable 12/21/16 07:34 Tear Drop Cells Not Reportable 12/21/16 07:34 Ovalocytes Not Reportable 12/21/16 07:34 Helmet Cells Not Reportable 12/21/16 07:34 [place] Bodies Not Reportable 12/21/16 07:34 [place] Rings Not Reportable 12/21/16 07:34 [place] Cells Not Reportable 12/21/16 07:34 Bite Cells Not Reportable 12/21/16 07:34 Crenated Cell Not Reportable 12/21/16 07:34 Elliptocytes Not Reportable 12/21/16 07:34 Acanthocytes (Spur) Not Reportable 12/21/16 07:34 Rouleaux Not Reportable 12/21/16 07:34 Hemoglobin C Crystals Not Reportable 12/21/16 07:34 Schistocytes Not Reportable 12/21/16 07:34 Malaria parasites Not Reportable 12/21/16 07:34 [place] Bodies Not Reportable 12/21/16 07:34 Hem Pathologist Commnt No 12/21/16 07:34 PT 18.2 Sec. (12.2-14.9) H 12/18/16 12:30 INR 1.43 (0.87-1.13) H 12/18/16 12:30 APTT 52.8 Sec. (24.2-36.6) H 12/18/16 12:30 Sodium 141 mmol/L (137-145) 12/20/16 09:57 Potassium 3.2 mmol/L (3.6-5.0) L 12/20/16 09:57 Chloride 103.3 mmol/L (98-107) 12/20/16 09:57 Carbon Dioxide 24 mmol/L (22-30) 12/20/16 09:57 Anion Gap 17 mmol/L 12/20/16 09:57 BUN 9 mg/dL (7-17) 12/20/16 09:57 Creatinine 0.6 mg/dL (0.7-1.2) L 12/20/16 09:57 Estimated GFR > 60 ml/min 12/20/16 09:57 BUN/Creatinine Ratio 15.00 % 12/20/16 09:57 Glucose 87 mg/dL (65-100) 12/20/16 09:57 Calcium 8.5 mg/dL (8.4-10.2) 12/20/16 09:57 Iron 78 ug/dL (37-170) 12/19/16 07:11 TIBC 179.20 mcg/dL (250-450) L 12/19/16 07:11 % Saturation 43.53 % 12/19/16 07:11 Transferrin 128 mg/dl (192-382) L 12/19/16 07:11 Total Bilirubin 0.20 mg/dL (0.1-1.2) 12/19/16 04:11 AST 13 units/L (5-40) 12/19/16 04:11 ALT 8 units/L (7-56) 12/19/16 04:11 Alkaline Phosphatase 56 units/L (35-129) 12/19/16 04:11 Total Creatine Kinase 49 units/L (30-135) 12/18/16 12:30 CK-MB (CK-2) < 1.0 ng/mL (0.0-4.0) 12/18/16 12:30 CK-MB (CK-2) Rel Index 2.0 (0-4) 12/18/16 12:30 Troponin T < 0.010 ng/mL (0.00-0.029) 12/18/16 12:30 NT-Pro-B Natriuret Pep 234.0 pg/mL (0-900) 12/18/16 12:30 Total Protein 6.7 g/dL (6.3-8.2) 12/19/16 04:11 Albumin 2.9 g/dL (3.9-5) L 12/19/16 04:11 Albumin/Globulin Ratio 0.8 % 12/19/16 04:11 TSH 1.350 mlU/mL (0.270-4.200) 12/18/16 12:30 Free T4 1.56 ng/dL (0.76-1.46) H 12/18/16 12:30 Urine Color Yellow (Yellow) 12/18/16 12:46 Urine Turbidity Clear (Clear) 12/18/16 12:46 Urine pH 7.0 (5.0-7.0) 12/18/16 12:46 Ur Specific [place] 1.016 (1.003-1.030) 12/18/16 12:46 Urine Protein 30 mg/dl mg/dL (Negative) 12/18/16 12:46 Urine Glucose (UA) Neg mg/dL (Negative) 12/18/16 12:46 Urine Ketones Neg mg/dL (Negative) 12/18/16 12:46 Urine Blood Sm (Negative) 12/18/16 12:46 Urine Nitrite Neg (Negative) 12/18/16 12:46 Urine Bilirubin Neg (Negative) 12/18/16 12:46 Urine Urobilinogen < 2.0 mg/dL (<2.0) 12/18/16 12:46 Ur Leukocyte Esterase Neg (Negative) 12/18/16 12:46 Urine WBC (Auto) < 1.0 /HPF (0.0-6.0) 12/18/16 12:46 Urine RBC (Auto) < 1.0 /HPF (0.0-6.0) 12/18/16 12:46 Blood Type O POSITIVE 12/18/16 12:30 Antibody Screen TNR 12/18/16 12:30 DOMINIQUE Antibody Screen Negative 12/18/16 12:30 Crossmatch See Detail 12/18/16 12:30 - Imaging and Cardiology Venous US: image reviewed (left lower extremity DVT)
[2016-12-21 12:54] LABS: White Blood Count 1.2 K/mm3 (4.5-11.0)
--- NOTE | 2016-12-21 16:26 | Progress Note ---
Assessment and Plan Pt's duplex suggest a large acute LLE Ileofemoral dvt extending down to the pop vein. She also has a SVT of the L GSV. Will check a CT scan of the abd/pelvis with contrast to further assess her need and ability to tolerate an IVC filter. Pt is not presently on anticoagulation. If pt can not be anticoagulated, and her anatomy is suitable then IVC filter insertion could be considered. Pt is not currently protected against PE. Agree with Hematology recommendation of resuming anticoagulation (and watching for signs of bleeding) while an Inpt. - Patient Problems (1) Ileofemoral deep vein thrombosis Current Visit: Yes Status: Acute Qualifiers: Laterality: left Qualified Code(s): I82.422 - Acute embolism and thrombosis of left iliac vein (2) Pancytopenia Current Visit: Yes Status: Acute (3) Uterine cancer Current Visit: Yes Status: Chronic Qualifiers: Malignant neoplasm of uterus location: M Malignant neoplasm of cervix location: M Malignant neoplasm of body of uterus location: M Subjective Date of service: 12/21/16 Interval history: Pt resting, but easily awoke and is without complaint at present. Objective - Constitutional Vitals: Vital Signs - 12hr 12/21/16 10:00 Temperature 98 F Pulse Rate 67 Respiratory 16 Rate Blood Pressure 118/57 O2 Sat by Pulse 100 Oximetry General appearance: Present: no acute distress - EENT Eyes: EOM intact ENT: hearing intact - Respiratory Respiratory effort: normal (unlabored at rest) Extremities: normal temperature Extremity abnormal: edema (mild edema of the left when compaired to the right.) - Neurologic Neurologic: no focal deficits - Psychiatric Psychiatric: appropriate mood/affect, intact judgment & insight, cooperative - Labs CBC & Chem 7: 12/21/16 07:34 12/20/16 09:57 Labs: Abnormal lab results 12/21/16 Range/Units 07:34 WBC 1.2 L* (4.5-11.0) K/mm3 RBC 3.13 L (3.65-5.03) M/mm3 Hgb 9.5 L (10.1-14.3) gm/dl Hct 28.2 L (30.3-42.9) % RDW 17.3 H (13.2-15.2) % Plt Count 123 L (140-440) K/mm3 Seg Neuts % (Manual) 21.0 L (40.0-70.0) % Lymphocytes % (Manual) 57.0 H (13.4-35.0) % Monocytes % (Manual) 8.0 H (0.0-7.3) % Seg Neutrophils # Man 0.0 L (1.8-7.7) K/mm3 Lymphocytes # (Manual) 0.0 L (1.2-5.4) K/mm3
[2016-12-22 04:44] LABS: Hematocrit 27.4 % (30.3-42.9); Hemoglobin 9.2 gm/dl (10.1-14.3); Mean Corpuscular HGB Conc 34 % (30-34); Mean Corpuscular Hemoglobin 30 pg (28-32); Mean Corpuscular Volume 89 fl (79-97); Red Blood Count 3.08 M/mm3 (3.65-5.03); Red Cell Distribution Width 17.9 % (13.2-15.2)
[2016-12-22 04:52] LABS: BUN/Creatinine Ratio 14.28; Blood Urea Nitrogen 10 mg/dL (7-17); Calcium 8.8 mg/dL (8.4-10.2); Carbon Dioxide 26 mmol/L (22-30); Glucose 100 mg/dL (65-100)
[2016-12-22 04:53] LABS: Anion Gap 16 mmol/L; Chloride 106.3 mmol/L (98-107); Potassium 3.8 mmol/L (3.6-5.0); Sodium 144 mmol/L (137-145)
[2016-12-22 05:21] LABS: Platelet Count 88 K/mm3 (140-440)
[2016-12-22 05:24] LABS: White Blood Count 1.1 K/mm3 (4.5-11.0)
[2016-12-22 08:47] LABS: Basophils % (Manual) 0 % (0.0-1.8); Blastocytes % (Manual) 0 %
[2016-12-22 08:48] LABS: Anisocytosis 3+; Diff Status Complete; Hypochromasia 1+
[2016-12-22 08:49] LABS: Platelet Estimate Consistent w Auto
[2016-12-22] MEDS: GRANIX SUB-Q SCH (10:41)
[2016-12-22] MEDS: K-DUR PO SCH ×2 (10:52→22:02)
[2016-12-22] MEDS: COZAAR PO SCH (10:52)
[2016-12-22] MEDS: OYSCO D 500 MG-200 UNIT PO SCH ×2 (10:53→22:02)
[2016-12-22] MEDS: TENORMIN PO SCH (10:53)
[2016-12-22] MEDS ORDERED: NACL ONE (11:20)
--- NOTE | 2016-12-22 12:09 | Cat Scan Report ---
CT scan of abdomen and pelvis with IV contrast: History: Patency, compression of IVC. DVT. Findings: Normal lung bases. No pleural pericardial effusion. Small cyst left lobe of liver. Liver normal in size. There is a large left renal cyst noted measuring 7.6 x 7.8 cm. 1 cm and 9 mm cyst right kidney. Bilateral mild hydronephrosis due to compression of the ureters distally by a mass in the pelvis. Normal portal vein and superior mesenteric vein. Normal pancreas and spleen. Gaseous colon with large volume stool in colon. Central location of small bowel which does not appear distended. Large amount of ascitic fluid in the abdomen. There is septated the largest cyst noted in the pelvis measuring 15 cm x 7 cm x 17 cm in diameter. Large amount of ascitic fluid in the abdomen. Impression: Large amount of ascitic fluid. Large cystic pelvic mass. Additional findings as detailed above.
--- NOTE | 2016-12-22 12:45 | Progress Note ---
Assessment and Plan Assessment and plan: The patient is a 71-year-old female presenting with a chief complaint of weakness. She has uterine cancer that was diagnosed in July 2016, and is currently receiving chemotherapy and with the hospital, she received higher fifth cycle of chemotherapy on December 08, she does not think she received Neulasta she has never heard of it. Her Oncologist is Dr. Huizar at [facility] Symptomatic anemia, RAULITO hemoglobin 6.5 Sec to chemo therapy . Status post multiple transfusions, hemoglobin now improved to 9 TIBC low indicative of anemia of chronic disease, thyroid function tests are normal Pancytopenia, neutropenia, thrombocytopenia Hematology Oncology input appreciated, continue Neupogen, status post platelet transfusion, with improvement in platelet counts, plt count now 88 She is still neutropenic, ANC today is 660 HTN (hypertension) Cont Losartan and other anti hypertensives Hypokalemia continue supplement Hypomagnesemia Mg sulfate 2g x1 dose Uterine cancer Outpatient follow-up with her oncologist at [facility] Acute LE dvt Venous US, image reviewed: ACUTE DVT IN THE LT.DISTAL ILIAC VEIN ,LT.CFV AND LT.POPLITEAL VEIN.SVT IN THE LT.PX GSV AT LT. PX THIGH. 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 resume lovenox full dose, watch plt count and monitor for signs of bleeding; keep plt count above 50 History Interval history: She feels well, weakness has now resolved, denies dyspnea on exertion Hospitalist Physical - Physical exam Narrative exam: General: Patient appears well in no distress HEENT: MMM, EOMI cardiac: S1-S2 heard lungs: clear to auscultation, abdomen: soft, nontender, nondistended bowel sounds positive extremities: no edema clubbing or cyanosis Skin: no rash or lesion Neuro: no focal deficit Psych: appropriate behavior and mood, cognition intact - Constitutional Vitals: Temp Pulse Resp BP Pulse Ox 98.1 F 84 18 131/83 98 12/22/16 10:00 12/22/16 10:00 12/22/16 10:00 12/22/16 10:00 12/22/16 10:00 General appearance: Present: no acute distress Results - Labs CBC & Chem 7: 12/23/16 05:32 12/22/16 04:19 Labs: Laboratory Last Values WBC 1.1 K/mm3 (4.5-11.0) L* 12/22/16 04:19 RBC 3.08 M/mm3 (3.65-5.03) L 12/22/16 04:19 Hgb 9.2 gm/dl (10.1-14.3) L 12/22/16 04:19 Hct 27.4 % (30.3-42.9) L 12/22/16 04:19 MCV 89 fl (79-97) 12/22/16 04:19 MCH 30 pg (28-32) 12/22/16 04:19 MCHC 34 % (30-34) 12/22/16 04:19 RDW 17.9 % (13.2-15.2) H 12/22/16 04:19 Plt Count 88 K/mm3 (140-440) L 12/22/16 04:19 Add Manual Diff Complete 12/22/16 04:19 Total Counted 100 12/22/16 04:19 Seg Neutrophils % Autistic Teacher 12/21/16 07:34 Seg Neuts % (Manual) 60.0 % (40.0-70.0) 12/22/16 04:19 Band Neutrophils % 17.0 % 12/22/16 04:19 Lymphocytes % (Manual) 15.0 % (13.4-35.0) 12/22/16 04:19 Reactive Lymphs % (Man) 0 % 12/22/16 04:19 Monocytes % (Manual) 3.0 % (0.0-7.3) 12/22/16 04:19 Eosinophils % (Manual) 2.0 % (0.0-4.3) 12/22/16 04:19 Basophils % (Manual) 0 % (0.0-1.8) 12/22/16 04:19 Metamyelocytes % 3.0 % 12/22/16 04:19 Myelocytes % 0 % 12/22/16 04:19 Promyelocytes % 0 % 12/22/16 04:19 Blast Cells % 0 % 12/22/16 04:19 Nucleated RBC % Not Reportable 12/22/16 04:19 Seg Neutrophils # Man 0.7 K/mm3 (1.8-7.7) L 12/22/16 04:19 Band Neutrophils # 0.2 K/mm3 12/22/16 04:19 Lymphocytes # (Manual) 0.2 K/mm3 (1.2-5.4) L 12/22/16 04:19 Abs React Lymphs (Man) 0.0 K/mm3 12/22/16 04:19 Monocytes # (Manual) 0.0 K/mm3 (0.0-0.8) 12/22/16 04:19 Eosinophils # (Manual) 0.0 K/mm3 (0.0-0.4) 12/22/16 04:19 Basophils # (Manual) 0.0 K/mm3 (0.0-0.1) 12/22/16 04:19 Metamyelocytes # 0.0 K/mm3 12/22/16 04:19 Myelocytes # 0.0 K/mm3 12/22/16 04:19 Promyelocytes # 0.0 K/mm3 12/22/16 04:19 Blast Cells # 0.0 K/mm3 12/22/16 04:19 WBC Morphology Not Reportable 12/22/16 04:19 Hypersegmented Neuts Not Reportable 12/22/16 04:19 Hyposegmented Neuts Not Reportable 12/22/16 04:19 Hypogranular Neuts Not Reportable 12/22/16 04:19 Smudge Cells Not Reportable 12/22/16 04:19 Toxic Granulation Not Reportable 12/22/16 04:19 Toxic Vacuolation Not Reportable 12/22/16 04:19 Dohle Bodies Not Reportable 12/22/16 04:19 Pelger-Huet Anomaly Not Reportable 12/22/16 04:19 Maynor Rods Not Reportable 12/22/16 04:19 Platelet Estimate Consistent w auto 12/22/16 04:19 Clumped Platelets Not Reportable 12/22/16 04:19 Plt Clumps, EDTA Not Reportable 12/22/16 04:19 Large Platelets Not Reportable 12/22/16 04:19 Giant Platelets Not Reportable 12/22/16 04:19 Platelet Satelliting Not Reportable 12/22/16 04:19 Plt Morphology Comment Not Reportable 12/22/16 04:19 RBC Morphology Not Reportable 12/22/16 04:19 Dimorphic RBCs Not Reportable 12/22/16 04:19 Polychromasia Not Reportable 12/22/16 04:19 Hypochromasia 1+ 12/22/16 04:19 Poikilocytosis Not Reportable 12/22/16 04:19 Anisocytosis 3+ 12/22/16 04:19 Microcytosis Not Reportable 12/22/16 04:19 Macrocytosis Not Reportable 12/22/16 04:19 Spherocytes Not Reportable 12/22/16 04:19 Pappenheimer Bodies Not Reportable 12/22/16 04:19 Sickle Cells Not Reportable 12/22/16 04:19 Target Cells Not Reportable 12/22/16 04:19 Tear Drop Cells Not Reportable 12/22/16 04:19 Ovalocytes Not Reportable 12/22/16 04:19 Helmet Cells Not Reportable 12/22/16 04:19 [place] Bodies Not Reportable 12/22/16 04:19 [place] Rings Not Reportable 12/22/16 04:19 [place]ixa Cells Not Reportable 12/22/16 04:19 Bite Cells Not Reportable 12/22/16 04:19 Crenated Cell Not Reportable 12/22/16 04:19 Elliptocytes Not Reportable 12/22/16 04:19 Acanthocytes (Spur) Not Reportable 12/22/16 04:19 Rouleaux Not Reportable 12/22/16 04:19 Hemoglobin C Crystals Not Reportable 12/22/16 04:19 Schistocytes Not Reportable 12/22/16 04:19 Malaria parasites Not Reportable 12/22/16 04:19 Leroy Bodies Not Reportable 12/22/16 04:19 Hem Pathologist Commnt No 12/22/16 04:19 PT 18.2 Sec. (12.2-14.9) H 12/18/16 12:30 INR 1.43 (0.87-1.13) H 12/18/16 12:30 APTT 52.8 Sec. (24.2-36.6) H 12/18/16 12:30 Sodium 144 mmol/L (137-145) 12/22/16 04:19 Potassium 3.8 mmol/L (3.6-5.0) 12/22/16 04:19 Chloride 106.3 mmol/L (98-107) 12/22/16 04:19 Carbon Dioxide 26 mmol/L (22-30) 12/22/16 04:19 Anion Gap 16 mmol/L 12/22/16 04:19 BUN 10 mg/dL (7-17) 12/22/16 04:19 Creatinine 0.7 mg/dL (0.7-1.2) 12/22/16 04:19 Estimated GFR > 60 ml/min 12/22/16 04:19 BUN/Creatinine Ratio 14.28 % 12/22/16 04:19 Glucose 100 mg/dL (65-100) 12/22/16 04:19 Calcium 8.8 mg/dL (8.4-10.2) 12/22/16 04:19 Magnesium 1.30 mg/dL (1.7-2.3) L 12/22/16 04:19 Iron 78 ug/dL (37-170) 12/19/16 07:11 TIBC 179.20 mcg/dL (250-450) L 12/19/16 07:11 % Saturation 43.53 % 12/19/16 07:11 Transferrin 128 mg/dl (192-382) L 12/19/16 07:11 Total Bilirubin 0.20 mg/dL (0.1-1.2) 12/19/16 04:11 AST 13 units/L (5-40) 12/19/16 04:11 ALT 8 units/L (7-56) 12/19/16 04:11 Alkaline Phosphatase 56 units/L (35-129) 12/19/16 04:11 Total Creatine Kinase 49 units/L (30-135) 12/18/16 12:30 CK-MB (CK-2) < 1.0 ng/mL (0.0-4.0) 12/18/16 12:30 CK-MB (CK-2) Rel Index 2.0 (0-4) 12/18/16 12:30 Troponin T < 0.010 ng/mL (0.00-0.029) 12/18/16 12:30 NT-Pro-B Natriuret Pep 234.0 pg/mL (0-900) 12/18/16 12:30 Total Protein 6.7 g/dL (6.3-8.2) 12/19/16 04:11 Albumin 2.9 g/dL (3.9-5) L 12/19/16 04:11 Albumin/Globulin Ratio 0.8 % 12/19/16 04:11 TSH 1.350 mlU/mL (0.270-4.200) 12/18/16 12:30 Free T4 1.56 ng/dL (0.76-1.46) H 12/18/16 12:30 Urine Color Yellow (Yellow) 12/18/16 12:46 Urine Turbidity Clear (Clear) 12/18/16 12:46 Urine pH 7.0 (5.0-7.0) 12/18/16 12:46 Ur Specific [place] 1.016 (1.003-1.030) 12/18/16 12:46 Urine Protein 30 mg/dl mg/dL (Negative) 12/18/16 12:46 Urine Glucose (UA) Neg mg/dL (Negative) 12/18/16 12:46 Urine Ketones Neg mg/dL (Negative) 12/18/16 12:46 Urine Blood Sm (Negative) 12/18/16 12:46 Urine Nitrite Neg (Negative) 12/18/16 12:46 Urine Bilirubin Neg (Negative) 12/18/16 12:46 Urine Urobilinogen < 2.0 mg/dL (<2.0) 12/18/16 12:46 Ur Leukocyte Esterase Neg (Negative) 12/18/16 12:46 Urine WBC (Auto) < 1.0 /HPF (0.0-6.0) 12/18/16 12:46 Urine RBC (Auto) < 1.0 /HPF (0.0-6.0) 12/18/16 12:46 Blood Type O POSITIVE 12/18/16 12:30 Antibody Screen TNR 12/18/16 12:30 DOMINIQUE Antibody Screen Negative 12/18/16 12:30 Crossmatch See Detail 12/18/16 12:30
--- NOTE | 2016-12-22 13:53 | Hem/Onc Progress Note ---
Assessment and Plan - Patient Problems (1) Pancytopenia Current Visit: Yes Status: Acute Plan to address problem: Improving. Continue neupogen. PRBC and platelets. keep platelets > 50K if planning anticoagulation Subjective Date of service: 12/22/16 Interval history: Feels better overall. No new complains Objective - Constitutional Vitals: Last Vital Signs Temp 98.1 F 12/22/16 10:00 Pulse 84 12/22/16 10:00 Resp 18 12/22/16 10:00 BP 131/83 12/22/16 10:00 Pulse Ox 98 12/22/16 10:00 - EENT ENT: hearing intact Lymph node exam: negative cervical - Neck Neck: supple - Respiratory Respiratory effort: Positive: normal Respiratory: bilateral: CTA - Cardiovascular Rhythm: regular - Labs Lab Results: Laboratory Results - last 24 hr 12/22/16 12/22/16 04:19 04:19 WBC 1.1 L* RBC 3.08 L Hgb 9.2 L Hct 27.4 L MCV 89 MCH 30 MCHC 34 RDW 17.9 H Plt Count 88 L Add Manual Diff Complete Total Counted 100 Seg Neuts % (Manual) 60.0 Band Neutrophils % 17.0 Lymphocytes % (Manual) 15.0 Reactive Lymphs % (Man) 0 Monocytes % (Manual) 3.0 Eosinophils % (Manual) 2.0 Basophils % (Manual) 0 Metamyelocytes % 3.0 Myelocytes % 0 Promyelocytes % 0 Blast Cells % 0 Nucleated RBC % Not Reportable Seg Neutrophils # Man 0.7 L Band Neutrophils # 0.2 Lymphocytes # (Manual) 0.2 L Abs React Lymphs (Man) 0.0 Monocytes # (Manual) 0.0 Eosinophils # (Manual) 0.0 Basophils # (Manual) 0.0 Metamyelocytes # 0.0 Myelocytes # 0.0 Promyelocytes # 0.0 Blast Cells # 0.0 WBC Morphology Not Reportable Hypersegmented Neuts Not Reportable Hyposegmented Neuts Not Reportable Hypogranular Neuts Not Reportable Smudge Cells Not Reportable Toxic Granulation Not Reportable Toxic Vacuolation Not Reportable Dohle Bodies Not Reportable Pelger-Huet Anomaly Not Reportable Maynor Rods Not Reportable Platelet Estimate Consistent w auto Clumped Platelets Not Reportable Plt Clumps, EDTA Not Reportable Large Platelets Not Reportable Giant Platelets Not Reportable Platelet Satelliting Not Reportable Plt Morphology Comment Not Reportable RBC Morphology Not Reportable Dimorphic RBCs Not Reportable Polychromasia Not Reportable Hypochromasia 1+ Poikilocytosis Not Reportable Anisocytosis 3+ Microcytosis Not Reportable Macrocytosis Not Reportable Spherocytes Not Reportable Pappenheimer Bodies Not Reportable Sickle Cells Not Reportable Target Cells Not Reportable Tear Drop Cells Not Reportable Ovalocytes Not Reportable Helmet Cells Not Reportable [place] Bodies Not Reportable [place] Rings Not Reportable [place] Cells Not Reportable Bite Cells Not Reportable Crenated Cell Not Reportable Elliptocytes Not Reportable Acanthocytes (Spur) Not Reportable Rouleaux Not Reportable Hemoglobin C Crystals Not Reportable Schistocytes Not Reportable Malaria parasites Not Reportable Leroy Bodies Not Reportable Hem Pathologist Commnt No Sodium 144 Potassium 3.8 Chloride 106.3 Carbon Dioxide 26 Anion Gap 16 BUN 10 Creatinine 0.7 Estimated GFR > 60 BUN/Creatinine Ratio 14.28 Glucose 100 Calcium 8.8 Magnesium 1.30 L
--- NOTE | 2016-12-22 13:53 | Progress Note ---
Assessment and Plan - Patient Problems (1) Ileofemoral deep vein thrombosis Current Visit: Yes Status: Acute Qualifiers: Laterality: left Qualified Code(s): I82.422 - Acute embolism and thrombosis of left iliac vein Plan to address problem: Agree with anti-coagulation- (2) Pancytopenia Current Visit: Yes Status: Acute Plan to address problem: Observation Subjective Date of service: 12/22/16 Interval history: No complaints. Objective - Constitutional Vitals: Vital Signs - 12hr 12/22/16 10:00 Temperature 98.1 F Pulse Rate 84 Pulse Rate [ 84 Apical] Respiratory 18 Rate Blood Pressure 131/83 O2 Sat by Pulse 98 Oximetry General appearance: Present: no acute distress - Neck Neck: supple, normal ROM - Respiratory Respiratory effort: normal Respiratory: bilateral: CTA - Cardiovascular Rhythm: regular Heart Sounds: Present: S1 & S2 Extremities: no ischemia, normal temperature, normal color Extremity abnormal: edema - Gastrointestinal General gastrointestinal: Present: soft, distended Rectal Exam: deferred - Genitourinary Female genitourinary: deferred - Integumentary Integumentary: clear, warm, dry - Musculoskeletal Musculoskeletal: strength equal bilaterally - Labs CBC & Chem 7: 12/22/16 04:19 12/22/16 04:19 Labs: Abnormal lab results 12/22/16 12/22/16 Range/Units 04:19 04:19 WBC 1.1 L* (4.5-11.0) K/mm3 RBC 3.08 L (3.65-5.03) M/mm3 Hgb 9.2 L (10.1-14.3) gm/dl Hct 27.4 L (30.3-42.9) % RDW 17.9 H (13.2-15.2) % Plt Count 88 L (140-440) K/mm3 Seg Neutrophils # Man 0.7 L (1.8-7.7) K/mm3 Lymphocytes # (Manual) 0.2 L (1.2-5.4) K/mm3 Magnesium 1.30 L (1.7-2.3) mg/dL
[2016-12-22] MEDS ORDERED: MAGNESIUM SULFATE 2GM/50ML 2 GM/50 ML BAG IV ONE (14:00)
[2016-12-22] MEDS: LOVENOX SUB-Q SCH ×2 (15:57→22:04)
[2016-12-23 06:19] LABS: Hematocrit 26.1 % (30.3-42.9); Hemoglobin 8.7 gm/dl (10.1-14.3); Mean Corpuscular HGB Conc 33 % (30-34); Mean Corpuscular Hemoglobin 30 pg (28-32); Mean Corpuscular Volume 89 fl (79-97); Red Blood Count 2.93 M/mm3 (3.65-5.03)
[2016-12-23 06:29] LABS: Platelet Count 70 K/mm3 (140-440); White Blood Count 1.7 K/mm3 (4.5-11.0)
[2016-12-23 07:58] LABS: Anisocytosis 3+; Basophils % (Manual) 0 % (0.0-1.8); Blastocytes % (Manual) 0 %
[2016-12-23 07:59] LABS: Diff Status Complete; Elliptocytes Few; Platelet Estimate Appears Decreased
[2016-12-23] MEDS: COZAAR PO SCH (10:30)
[2016-12-23] MEDS: TENORMIN PO SCH (10:34)
[2016-12-23] MEDS: K-DUR PO SCH ×2 (10:35→21:34)
[2016-12-23] MEDS: LOVENOX SUB-Q SCH ×2 (12:33→21:34)
[2016-12-23] MEDS: GRANIX SUB-Q SCH (12:34)
[2016-12-23] MEDS: OYSCO D 500 MG-200 UNIT PO SCH ×2 (12:37→21:35)
--- NOTE | 2016-12-23 13:21 | Progress Note ---
Assessment and Plan Assessment and plan: The patient is a 71-year-old female presenting with a chief complaint of weakness. She has uterine cancer that was diagnosed in July 2016, and is currently receiving chemotherapy and with the hospital, she received higher fifth cycle of chemotherapy on December 08, she does not think she received Neulasta she has never heard of it. Her Oncologist is Dr. Huizar at [facility] Symptomatic anemia, RAULITO hemoglobin 6.5 Sec to chemo therapy . Status post multiple transfusions, hemoglobin now improved TIBC low indicative of anemia of chronic disease, thyroid function tests are normal Pancytopenia, neutropenia, thrombocytopenia Hematology Oncology input appreciated, continue Neupogen, status post platelet transfusion, with improvement in platelet counts, plt count now 70 She is still neutropenic, ANC today is 986 HTN (hypertension) Cont Losartan and other anti hypertensives Hypokalemia continue supplement Hypomagnesemia Mg sulfate 2g x1 dose Uterine cancer Outpatient follow-up with her oncologist at [facility] Acute LE dvt Venous US, image reviewed: ACUTE DVT IN THE LT.DISTAL ILIAC VEIN ,LT.CFV AND LT.POPLITEAL VEIN.SVT IN THE LT.PX GSV AT LT. PX THIGH. 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 resume lovenox full dose, watch plt count and monitor for signs of bleeding; keep plt count above 50 History Interval history: She feels well, weakness has now resolved, denies dyspnea on exertion Hospitalist Physical - Physical exam Narrative exam: General: Patient appears well in no distress HEENT: MMM, EOMI cardiac: S1-S2 heard lungs: clear to auscultation, abdomen: soft, nontender, nondistended bowel sounds positive extremities: no edema clubbing or cyanosis Skin: no rash or lesion Neuro: no focal deficit Psych: appropriate behavior and mood, cognition intact - Constitutional Vitals: Temp Pulse Resp BP Pulse Ox 98.8 F 81 18 139/75 97 12/23/16 08:38 12/23/16 10:34 12/23/16 08:38 12/23/16 10:34 12/23/16 09:02 General appearance: Present: no acute distress Results - Labs CBC & Chem 7: 12/23/16 05:32 12/22/16 04:19 Labs: Laboratory Last Values WBC 1.7 K/mm3 (4.5-11.0) L* 12/23/16 05:32 RBC 2.93 M/mm3 (3.65-5.03) L 12/23/16 05:32 Hgb 8.7 gm/dl (10.1-14.3) L 12/23/16 05:32 Hct 26.1 % (30.3-42.9) L 12/23/16 05:32 MCV 89 fl (79-97) 12/23/16 05:32 MCH 30 pg (28-32) 12/23/16 05:32 MCHC 33 % (30-34) 12/23/16 05:32 RDW 17.0 % (13.2-15.2) H 12/23/16 05:32 Plt Count 70 K/mm3 (140-440) L 12/23/16 05:32 Add Manual Diff Complete 12/23/16 05:32 Total Counted 100 12/23/16 05:32 Seg Neutrophils % [employer] Super[employer] 12/21/16 07:34 Seg Neuts % (Manual) 52.0 % (40.0-70.0) 12/23/16 05:32 Band Neutrophils % 6.0 % 12/23/16 05:32 Lymphocytes % (Manual) 33.0 % (13.4-35.0) 12/23/16 05:32 Reactive Lymphs % (Man) 0 % 12/23/16 05:32 Monocytes % (Manual) 7.0 % (0.0-7.3) 12/23/16 05:32 Eosinophils % (Manual) 2.0 % (0.0-4.3) 12/23/16 05:32 Basophils % (Manual) 0 % (0.0-1.8) 12/23/16 05:32 Metamyelocytes % 0 % 12/23/16 05:32 Myelocytes % 0 % 12/23/16 05:32 Promyelocytes % 0 % 12/23/16 05:32 Blast Cells % 0 % 12/23/16 05:32 Nucleated RBC % Not Reportable 12/23/16 05:32 Seg Neutrophils # Man 0.9 K/mm3 (1.8-7.7) L 12/23/16 05:32 Band Neutrophils # 0.1 K/mm3 12/23/16 05:32 Lymphocytes # (Manual) 0.6 K/mm3 (1.2-5.4) L 12/23/16 05:32 Abs React Lymphs (Man) 0.0 K/mm3 12/23/16 05:32 Monocytes # (Manual) 0.1 K/mm3 (0.0-0.8) 12/23/16 05:32 Eosinophils # (Manual) 0.0 K/mm3 (0.0-0.4) 12/23/16 05:32 Basophils # (Manual) 0.0 K/mm3 (0.0-0.1) 12/23/16 05:32 Metamyelocytes # 0.0 K/mm3 12/23/16 05:32 Myelocytes # 0.0 K/mm3 12/23/16 05:32 Promyelocytes # 0.0 K/mm3 12/23/16 05:32 Blast Cells # 0.0 K/mm3 12/23/16 05:32 WBC Morphology Not Reportable 12/23/16 05:32 Hypersegmented Neuts Not Reportable 12/23/16 05:32 Hyposegmented Neuts Not Reportable 12/23/16 05:32 Hypogranular Neuts Not Reportable 12/23/16 05:32 Smudge Cells Not Reportable 12/23/16 05:32 Toxic Granulation Not Reportable 12/23/16 05:32 Toxic Vacuolation Not Reportable 12/23/16 05:32 Dohle Bodies Not Reportable 12/23/16 05:32 Pelger-Huet Anomaly Not Reportable 12/23/16 05:32 Maynor Rods Not Reportable 12/23/16 05:32 Platelet Estimate Appears decreased 12/23/16 05:32 Clumped Platelets Not Reportable 12/23/16 05:32 Plt Clumps, EDTA Not Reportable 12/23/16 05:32 Large Platelets Not Reportable 12/23/16 05:32 Giant Platelets Not Reportable 12/23/16 05:32 Platelet Satelliting Not Reportable 12/23/16 05:32 Plt Morphology Comment Not Reportable 12/23/16 05:32 RBC Morphology Not Reportable 12/23/16 05:32 Dimorphic RBCs Not Reportable 12/23/16 05:32 Polychromasia Not Reportable 12/23/16 05:32 Hypochromasia Not Reportable 12/23/16 05:32 Poikilocytosis Not Reportable 12/23/16 05:32 Anisocytosis 3+ 12/23/16 05:32 Microcytosis Not Reportable 12/23/16 05:32 Macrocytosis Not Reportable 12/23/16 05:32 Spherocytes Not Reportable 12/23/16 05:32 Pappenheimer Bodies Not Reportable 12/23/16 05:32 Sickle Cells Not Reportable 12/23/16 05:32 Target Cells Not Reportable 12/23/16 05:32 Tear Drop Cells Not Reportable 12/23/16 05:32 Ovalocytes Not Reportable 12/23/16 05:32 Helmet Cells Not Reportable 12/23/16 05:32 [place] Bodies Not Reportable 12/23/16 05:32 [place] Rings Not Reportable 12/23/16 05:32 Aixa Cells Not Reportable 12/23/16 05:32 Bite Cells Not Reportable 12/23/16 05:32 Crenated Cell Not Reportable 12/23/16 05:32 Elliptocytes Few 12/23/16 05:32 Acanthocytes (Spur) Not Reportable 12/23/16 05:32 Rouleaux Not Reportable 12/23/16 05:32 Hemoglobin C Crystals Not Reportable 12/23/16 05:32 Schistocytes Not Reportable 12/23/16 05:32 Malaria parasites Not Reportable 12/23/16 05:32 Leroy Bodies Not Reportable 12/23/16 05:32 Hem Pathologist Commnt No 12/23/16 05:32 PT 18.2 Sec. (12.2-14.9) H 12/18/16 12:30 INR 1.43 (0.87-1.13) H 12/18/16 12:30 APTT 52.8 Sec. (24.2-36.6) H 12/18/16 12:30 Sodium 144 mmol/L (137-145) 12/22/16 04:19 Potassium 3.8 mmol/L (3.6-5.0) 12/22/16 04:19 Chloride 106.3 mmol/L (98-107) 12/22/16 04:19 Carbon Dioxide 26 mmol/L (22-30) 12/22/16 04:19 Anion Gap 16 mmol/L 12/22/16 04:19 BUN 10 mg/dL (7-17) 12/22/16 04:19 Creatinine 0.7 mg/dL (0.7-1.2) 12/22/16 04:19 Estimated GFR > 60 ml/min 12/22/16 04:19 BUN/Creatinine Ratio 14.28 % 12/22/16 04:19 Glucose 100 mg/dL (65-100) 12/22/16 04:19 Calcium 8.8 mg/dL (8.4-10.2) 12/22/16 04:19 Magnesium 1.30 mg/dL (1.7-2.3) L 12/22/16 04:19 Iron 78 ug/dL (37-170) 12/19/16 07:11 TIBC 179.20 mcg/dL (250-450) L 12/19/16 07:11 % Saturation 43.53 % 12/19/16 07:11 Transferrin 128 mg/dl (192-382) L 12/19/16 07:11 Total Bilirubin 0.20 mg/dL (0.1-1.2) 12/19/16 04:11 AST 13 units/L (5-40) 12/19/16 04:11 ALT 8 units/L (7-56) 12/19/16 04:11 Alkaline Phosphatase 56 units/L (35-129) 12/19/16 04:11 Total Creatine Kinase 49 units/L (30-135) 12/18/16 12:30 CK-MB (CK-2) < 1.0 ng/mL (0.0-4.0) 12/18/16 12:30 CK-MB (CK-2) Rel Index 2.0 (0-4) 12/18/16 12:30 Troponin T < 0.010 ng/mL (0.00-0.029) 12/18/16 12:30 NT-Pro-B Natriuret Pep 234.0 pg/mL (0-900) 12/18/16 12:30 Total Protein 6.7 g/dL (6.3-8.2) 12/19/16 04:11 Albumin 2.9 g/dL (3.9-5) L 12/19/16 04:11 Albumin/Globulin Ratio 0.8 % 12/19/16 04:11 TSH 1.350 mlU/mL (0.270-4.200) 12/18/16 12:30 Free T4 1.56 ng/dL (0.76-1.46) H 12/18/16 12:30 Urine Color Yellow (Yellow) 12/18/16 12:46 Urine Turbidity Clear (Clear) 12/18/16 12:46 Urine pH 7.0 (5.0-7.0) 12/18/16 12:46 Ur Specific [place] 1.016 (1.003-1.030) 12/18/16 12:46 Urine Protein 30 mg/dl mg/dL (Negative) 12/18/16 12:46 Urine Glucose (UA) Neg mg/dL (Negative) 12/18/16 12:46 Urine Ketones Neg mg/dL (Negative) 12/18/16 12:46 Urine Blood Sm (Negative) 12/18/16 12:46 Urine Nitrite Neg (Negative) 12/18/16 12:46 Urine Bilirubin Neg (Negative) 12/18/16 12:46 Urine Urobilinogen < 2.0 mg/dL (<2.0) 12/18/16 12:46 Ur Leukocyte Esterase Neg (Negative) 12/18/16 12:46 Urine WBC (Auto) < 1.0 /HPF (0.0-6.0) 12/18/16 12:46 Urine RBC (Auto) < 1.0 /HPF (0.0-6.0) 12/18/16 12:46 Blood Type O POSITIVE 12/18/16 12:30 Antibody Screen TNR 12/18/16 12:30 DOMINIQUE Antibody Screen Negative 12/18/16 12:30 Crossmatch See Detail 12/18/16 12:30
[2016-12-24 05:41] LABS: Hematocrit 25.2 % (30.3-42.9); Hemoglobin 8.3 gm/dl (10.1-14.3); Mean Corpuscular HGB Conc 33 % (30-34); Mean Corpuscular Hemoglobin 30 pg (28-32); Mean Corpuscular Volume 91 fl (79-97); Red Blood Count 2.77 M/mm3 (3.65-5.03); Red Cell Distribution Width 17.5 % (13.2-15.2); White Blood Count 2.8 K/mm3 (4.5-11.0)
[2016-12-24 05:45] LABS: Platelet Count 64 K/mm3 (140-440)
[2016-12-24 05:53] LABS: Anion Gap 15 mmol/L; BUN/Creatinine Ratio 14.28; Blood Urea Nitrogen 10 mg/dL (7-17); Calcium 9.3 mg/dL (8.4-10.2); Carbon Dioxide 26 mmol/L (22-30); Chloride 104.1 mmol/L (98-107); Glucose 85 mg/dL (65-100); Potassium 4.1 mmol/L (3.6-5.0); Sodium 141 mmol/L (137-145)
[2016-12-24 07:39] LABS: Anisocytosis 2+; Basophils % (Manual) 0 % (0.0-1.8); Blastocytes % (Manual) 0 %; Eosinophils % (Manual) 0 % (0.0-4.3)
[2016-12-24 07:40] LABS: Diff Status Complete; Elliptocytes Few; Ovalocytes Few; Platelet Estimate Consistent w Auto
[2016-12-24] MEDS: TENORMIN PO SCH (09:07)
[2016-12-24] MEDS: K-DUR PO SCH (09:08)
[2016-12-24] MEDS: COZAAR PO SCH (09:08)
[2016-12-24 09:09] VITALS: BP 129/66
--- NOTE | 2016-12-24 11:22 | Discharge Summary ---
Providers - Providers Date of Admission: 12/18/16 14:35 Attending physician: LYNSEY MILES MD 12/19/16 09:54 Physical Therapy Evaluation and Treat [CONS] Routine Comment: Reason For Exam: weakness 12/19/16 14:37 Consult to Physician [CONS] Routine Consulting Provider: GABRIEL LAWSON Reason For Exam: needs IVC filter Place consult to:: OFFICE Notified:: YES Phone number called:: [phone] If yes, spoke with:: ROM Time called:: 15:29 Comment:: TAMIKO Primary care physician: SLIP COVER SEAMSTRESS Hospitalization Condition: Fair Hospital course: The patient is a 71-year-old female presenting with a chief complaint of weakness. She has uterine cancer that was diagnosed in July 2016, and is currently receiving chemotherapy and with the hospital, she received higher fifth cycle of chemotherapy on December 08, she does not think she received Neulasta she has never heard of it. Her Oncologist is Dr. Castro at [facility] Symptomatic anemia, RAULITO hemoglobin 6.5 Sec to chemo therapy . Status post multiple transfusions, hemoglobin now improved TIBC low indicative of anemia of chronic disease, thyroid function tests are normal Pancytopenia, neutropenia, thrombocytopenia Hematology Oncology input appreciated, she received Neupogen after which neutropenia resolved She also received platelet transfusion, after which her platelet count improved. Of note she will need to follow up with her oncologist very frequently and it is within 2 days to check her platelet counts. As full dose anticoagulation can only be continued and her if platelets are above 50 HTN (hypertension) Cont Losartan and other anti hypertensives Hypokalemia She was continued on her oral supplementation while in hospital Hypomagnesemia Received IV supplementation, she is being sent home with oral supplementation. Uterine cancer Outpatient follow-up with her oncologist at [facility] Acute extensive Left LE dvt Venous US, image reviewed: ACUTE DVT IN THE LT.DISTAL ILIAC VEIN ,LT.CFV AND LT.POPLITEAL VEIN.SVT IN THE LT.PX GSV AT LT. PX THIGH. THICK ,SWIRLING BLOOD ( ROULEAUX FORMATION) NOTED IN THE LT.GROIN VESSELS Case was discussed with vascular surgery, IVC filter device she contraindicated in malignancy as it is a nidus for thrombosis, She was seen by hematology/oncology who recommended continuing full dose anticoagulation as long as her platelet counts is above 50. Therefore she she needs a follow-up oncologist Dr. CASTRO within 1-2 days and have frequent blood draws to ensure that it is safe to continue full dose anticoagulation. She received Lovenox while in-house, she is being discharged back on her production which was on prior to coming to the hospital. There were no signs of active bleeding while in hospital. I personally called Dr Castro's office to request immediate followup as she has thrombocytopenia and is fully anticoagulated, they conveyed to me that she has been getting chemo, but has not been following up in clinic. They gave her an appointment for 12/25/16 at 2pm which she must keep, as per them Discharge diagnoses Symptomatic anemia due to chemotherapy Pancytopenia Neutropenia Thrombocytopenia Hypertension Hypokalemia Hypomagnesemia Uterine cancer Acute extensive left lower extremity DVT Disposition: TO HOME OR SELFCARE Time spent for discharge: 32 minutes Core Measure Documentation - Palliative Care Palliative Care/ Comfort Measures: Not Applicable - Core Measures Any of the following diagnoses?: none Exam - Constitutional Vitals: Temp Pulse Resp BP Pulse Ox 99.2 F 79 20 129/66 97 12/24/16 09:45 12/24/16 09:45 12/24/16 09:45 12/24/16 09:45 12/23/16 22:00 General appearance: Present: no acute distress, well-nourished - EENT Eyes: Present: PERRL ENT: hearing intact, clear oral mucosa - Neck Neck: Present: supple, normal ROM - Respiratory Respiratory effort: normal Respiratory: bilateral: CTA - Cardiovascular Heart Sounds: Present: S1 & S2. Absent: rub, click - Extremities Extremities: pulses symmetrical Extremity abnormal: edema (LLE) Peripheral Pulses: within normal limits - Abdominal General gastrointestinal: Present: soft, non-tender, non-distended, normal bowel sounds Female genitourinary: Present: normal - Integumentary Integumentary: Present: clear, warm, dry - Musculoskeletal Musculoskeletal: gait normal, strength equal bilaterally - Psychiatric Psychiatric: appropriate mood/affect, intact judgment & insight - Neurologic Neurologic: CNII-XII intact, moves all extremities Plan Additional Instructions: Please follow up with Dr Castro in Clinic on 12/25/2016 at 2pm. You must keep this appointment Follow up with: PRIMARY CAREMD [Primary Care Provider] - 3-5 Days Prescriptions: Dabigatran [Pradaxa] 150 mg PO BID #60 capsule Magnesium Oxide 400 mg PO DAILY #30 tablet oxyCODONE /ACETAMINOPHEN [Percocet 5/325 mg] 1 tab PO Q6H PRN #14 tablet PRN Reason: Pain, Moderate (4-6)
--- NOTE | 2016-12-24 11:46 | Event Note ---
Date: 12/24/16 CT scan reviewed. Given the large tumor burden, the patient is not a candidate for IVC filter placement. She may be discharged on anticoagulation. Recommend ANTIONETTE márquez for left leg compression.
[2016-12-24] MEDS: OYSCO D 500 MG-200 UNIT PO SCH (14:51)
[2016-12-24] MEDS: GRANIX SUB-Q SCH (14:51)
== END 2016-12-24 20:30 | disposition home or self-care (01) | DRG 299 ==
LOC: ED 12:22 → CC2 14:35
PROVIDERS: ADMIT Internal Medicine; ATTEND Internal Medicine
PROC: 30233N1 Transfusion of Nonautologous Red Blood Cells into Peripheral Vein, Percutaneous Approach (ICD-10-PCS; 2016-12-19)
PROC: 30233R1 Transfusion of Nonautologous Platelets into Peripheral Vein, Percutaneous Approach (ICD-10-PCS; principal; 2016-12-20)
DX: I82.422 Acute embolism and thrombosis of left iliac vein (principal); D61.810 Antineoplastic chemotherapy induced pancytopenia; I82.432 Acute embolism and thrombosis of left popliteal vein; I10 Essential (primary) hypertension; E87.6 Hypokalemia; E83.42 Hypomagnesemia; C55 Malignant neoplasm of uterus, part unspecified; Z85.3 Personal history of malignant neoplasm of breast; Z90.710 Acquired absence of both cervix and uterus
CPT/HCPCS: 36415; 51701; 71010; 74177; 80048; 80053; 81001; 82550; 82553; 83550; 83735; 83880; 84100; 84439; 84443; 84484; 85007; 85014; 85018; 85025; 85610; 85730; 86850; 86900; 86901; 86920; 87040; 93005; 93010; 93970; G8978-GP; G8979-GP; J1447; J1644; J1650; J3475; J3480; J7040; P9016; P9035; Q9967

== ENCOUNTER 2016-12-26 18:38 | Emergency (ER) | payer MEDICARE ==
[2016-12-26 20:07] LABS: Bilirubin,Urine NEG (Negative); Blood,Urine SM (Negative); Ketones,Urine NEG (Negative); Leukocyte Esterase,Urine MOD (Negative); Nitrite,Urine NEG (Negative); Protein,Urine <15 mg/dL mg/dL (Negative); Urobilinogen,Urine < 2.0 mg/dL (<2.0)
[2016-12-26 20:13] LABS: Hematocrit 28.1 % (30.3-42.9); Hemoglobin 9.1 gm/dl (10.1-14.3); Mean Corpuscular HGB Conc 33 % (30-34); Mean Corpuscular Hemoglobin 30 pg (28-32); Mean Corpuscular Volume 93 fl (79-97); Red Blood Count 3.01 M/mm3 (3.65-5.03); Red Cell Distribution Width 17.2 % (13.2-15.2)
[2016-12-26 20:24] LABS: INR 1.63 (0.87-1.13)
[2016-12-26 20:25] LABS: Partial Thromboplastin Time 48.2 Sec. (24.2-36.6)
[2016-12-26 20:30] LABS: Alanine Aminotransferase 7 units/L (7-56); Albumin 3.4 g/dL (3.9-5); Albumin/Globulin Ratio 0.7 %; Alkaline Phosphatase 74 units/L (35-129); Anion Gap 22 mmol/L; Blood Urea Nitrogen 14 mg/dL (7-17); Carbon Dioxide 21 mmol/L (22-30); Chloride 102.4 mmol/L (98-107); Glucose 126 mg/dL (65-100); Lipase 29 units/L (13-60); Potassium 3.7 mmol/L (3.6-5.0); Sodium 142 mmol/L (137-145); Total Protein 8.1 g/dL (6.3-8.2)
[2016-12-26] MEDS ORDERED: MACROBID PO ONE (20:34)
--- NOTE | 2016-12-26 20:35 | Emergency Department Report ---
ED General Adult HPI - General Chief complaint: Weakness Stated complaint: GENERAL WEAKNESS Time Seen by Provider: 12/26/16 20:18 Source: patient, EMS, RN notes reviewed, old records reviewed Mode of arrival: Stretcher Limitations: No Limitations - History of Present Illness Initial comments: This is a 71-year-old female. She is previously unknown to me. She has a past medical history of uterine cancer, follows with Dr. Huizar at [facility]. Her primary care physician is with the [facility]. The patient is currently on systemic anticoagulation for lower extremity DVT. Patient recently admitted to the hospital for pancytopenia, DVT, and generalized weakness. She is currently on chemotherapy. Patient is brought to the hospital by EMS for complaint of generalized weakness. As per EMS documentation, patient is sitting upright on a bench, without immediate threat to life that were apparent. The patient denies shortness of breath, dyspnea, loss of consciousness, nausea, vomiting and headache. The patient indicated that she has chronic right lower extremity pain. The patient reported that she was having difficulty handling secondary to her chronic leg pain. To me, the patient admitted nausea, but denied further complaints. Patient indicates no exacerbating or relieving factors. Her only complaint is nausea and a sensation of generalized malaise. -: Gradual Improves with: none Worsens with: none Associated Symptoms: weakness - Related Data Home Medications Medication Instructions Recorded Confirmed Last Taken Atenolol [Tenormin] 100 mg PO DAILY 12/18/16 12/18/16 12/18/16 06:00 100mg Calcium Carbonate/Vitamin D3 1 each PO BID 12/18/16 12/18/16 12/18/16 06:00 [Calcium 600-Vit D3 800 Tablet] 1 tab Losartan [Cozaar] 50 mg PO QDAY 12/18/16 12/18/16 12/18/16 05:45 50mg Potassium Chloride [K-Dur] 10 meq PO BID 12/18/16 12/18/16 12/18/16 06:00 10meq Previous Rx's Medication Instructions Recorded Last Taken Type Dabigatran [Pradaxa] 150 mg PO BID #60 capsule 12/24/16 Unknown Rx Magnesium Oxide 400 mg PO DAILY #30 tablet 12/24/16 Unknown Rx oxyCODONE /ACETAMINOPHEN [Percocet 1 tab PO Q6H PRN #14 tablet 12/24/16 Unknown Rx 5/325 mg] Nitrofurantoin [place]/M-Cryst 100 mg PO Q12HR #13 capsule 12/26/16 Unknown Rx [Macrobid CAP] Allergies Allergy/AdvReac Type Severity Reaction Status Date / Time No Known Allergies Allergy Unverified 12/18/16 12:25 ED Review of Systems ROS: Stated complaint: GENERAL WEAKNESS Other details as noted in HPI Constitutional: malaise, weakness Eyes: denies: eye discharge ENT: denies: epistaxis Respiratory: denies: cough Cardiovascular: denies: chest pain Gastrointestinal: nausea. denies: abdominal pain Genitourinary: denies: dysuria, abnormal menses Musculoskeletal: denies: back pain ED Past Medical Hx - Past Medical History Previous Medical History?: Yes Hx Hypertension: Yes Hx of Cancer: Yes (Uterine dx August 2016) Hx HIV: No Additional medical history: DVT - Surgical History Past Surgical History?: Yes Additional Surgical History: Port, total hysterectomy - Social History Smoking Status: Never Smoker Substance Use Type: None - Medications Home Medications: Home Medications Medication Instructions Recorded Confirmed Last Taken Type Atenolol [Tenormin] 100 mg PO DAILY 12/18/16 12/18/16 12/18/16 06:00 History 100mg Calcium Carbonate/Vitamin D3 1 each PO BID 12/18/16 12/18/16 12/18/16 06:00 History [Calcium 600-Vit D3 800 Tablet] 1 tab Losartan [Cozaar] 50 mg PO QDAY 12/18/16 12/18/16 12/18/16 05:45 History 50mg Potassium Chloride [K-Dur] 10 meq PO BID 12/18/16 12/18/16 12/18/16 06:00 History 10meq Dabigatran [Pradaxa] 150 mg PO BID #60 capsule 12/24/16 Unknown Rx Magnesium Oxide 400 mg PO DAILY #30 tablet 12/24/16 Unknown Rx oxyCODONE /ACETAMINOPHEN [Percocet 1 tab PO Q6H PRN #14 tablet 12/24/16 Unknown Rx 5/325 mg] Nitrofurantoin [place]/M-Cryst 100 mg PO Q12HR #13 capsule 12/26/16 Unknown Rx [Macrobid CAP] ED Physical Exam - General Limitations: No Limitations General appearance: alert, in no apparent distress - Head Head exam: Present: atraumatic, normocephalic - Eye Eye exam: Present: normal appearance, PERRL, EOMI, other (visual acuity intact to finger counting, color perception, reading at a close distance). Absent: nystagmus - ENT ENT exam: Present: normal exam, normal orophraynx, mucous membranes moist, normal external ear exam - Neck Neck exam: Present: normal inspection, full ROM. Absent: tenderness, meningismus - Respiratory Respiratory exam: Present: normal lung sounds bilaterally. Absent: respiratory distress, wheezes, rales, rhonchi, stridor, chest wall tenderness, accessory muscle use, decreased breath sounds, prolonged expiratory - Cardiovascular Cardiovascular Exam: Present: regular rate, normal rhythm, normal heart sounds. Absent: bradycardia, tachycardia, irregular rhythm, systolic murmur, diastolic murmur, rubs, gallop - GI/Abdominal GI/Abdominal exam: Present: soft, normal bowel sounds. Absent: distended, tenderness, guarding, rebound, rigid, pulsatile mass - Rectal Rectal exam: Present: normal inspection, normal rectal tone, heme (-) stool - Extremities Exam Extremities exam: Present: normal inspection, full ROM, normal capillary refill. Absent: tenderness, pedal edema, joint swelling, calf tenderness - Back Exam Back exam: Present: normal inspection, full ROM. Absent: tenderness, CVA tenderness (R), CVA tenderness (L), muscle spasm, paraspinal tenderness, vertebral tenderness - Neurological Exam Neurological exam: Present: alert, oriented X3, normal gait (no past pointing. Negative pronator drift. Normal [id number].), other (Extraocular movements intact. Tongue midline. No facial droop. Facial sensation intact to light touch in the V1, V2, V3 distribution bilaterally. 5 and 5 strength in 4 extremities.. Sensation is intact to light touch in 4 extremities.). Absent: motor sensory deficit - Psychiatric Psychiatric exam: Present: normal affect, normal mood - Skin Skin exam: Present: warm, dry, intact, normal color. Absent: rash ED Course Vital Signs 12/26/16 12/26/16 12/26/16 18:40 18:43 18:50 Temperature 97.9 F Pulse Rate 74 74 Respiratory 14 13 Rate Blood Pressure 120/68 120/68 O2 Sat by Pulse 100 100 100 Oximetry 12/26/16 12/26/16 12/26/16 19:00 19:10 19:31 Temperature Pulse Rate 81 83 94 H Respiratory 14 14 15 Rate Blood Pressure 128/69 130/73 131/69 O2 Sat by Pulse 87 100 Oximetry 12/26/16 12/26/16 12/26/16 19:40 19:50 20:00 Temperature Pulse Rate 73 75 73 Respiratory 19 8 L 13 Rate Blood Pressure 131/69 131/69 148/77 O2 Sat by Pulse 100 100 98 Oximetry 12/26/16 12/26/16 12/26/16 20:10 20:20 20:32 Temperature 97.6 F Pulse Rate 72 75 Respiratory 14 12 Rate Blood Pressure 148/77 130/73 O2 Sat by Pulse 100 100 Oximetry 12/26/16 12/26/16 12/26/16 20:38 20:40 20:56 Temperature Pulse Rate 79 77 75 Respiratory 17 11 L 19 Rate Blood Pressure 130/73 130/73 130/73 O2 Sat by Pulse 100 95 98 Oximetry 12/26/16 12/26/16 12/26/16 21:00 21:10 21:20 Temperature Pulse Rate 65 60 62 Respiratory 12 19 13 Rate Blood Pressure 141/69 141/69 150/74 O2 Sat by Pulse 100 98 99 Oximetry 12/26/16 12/26/16 21:30 21:40 Temperature Pulse Rate 68 69 Respiratory 9 L 17 Rate Blood Pressure 141/68 141/68 O2 Sat by Pulse 99 97 Oximetry ED Medical Decision Making - Lab Data Result diagrams: 12/26/16 19:50 12/26/16 19:50 Vital Signs 12/26/16 12/26/16 12/26/16 18:40 18:43 18:50 Temperature 97.9 F Pulse Rate 74 74 Respiratory 14 13 Rate Blood Pressure 120/68 120/68 O2 Sat by Pulse 100 100 100 Oximetry 12/26/16 12/26/16 12/26/16 19:00 19:10 19:31 Temperature Pulse Rate 81 83 94 H Respiratory 14 14 15 Rate Blood Pressure 128/69 130/73 131/69 O2 Sat by Pulse 87 100 Oximetry 12/26/16 12/26/16 12/26/16 19:40 19:50 20:00 Temperature Pulse Rate 73 75 73 Respiratory 19 8 L 13 Rate Blood Pressure 131/69 131/69 148/77 O2 Sat by Pulse 100 100 98 Oximetry 12/26/16 12/26/16 20:10 20:32 Temperature 97.6 F Pulse Rate 72 Respiratory 14 Rate Blood Pressure 148/77 O2 Sat by Pulse 100 Oximetry Lab Results 12/26/16 12/26/16 12/26/16 Range/Units 19:38 19:44 19:50 WBC 4.0 L (4.5-11.0) K/mm3 RBC 3.01 L (3.65-5.03) M/mm3 Hgb 9.1 L (10.1-14.3) gm/dl Hct 28.1 L (30.3-42.9) % MCV 93 (79-97) fl MCH 30 (28-32) pg MCHC 33 (30-34) % RDW 17.2 H (13.2-15.2) % Plt Count 71 L (140-440) K/mm3 PT (12.2-14.9) Sec. INR (0.87-1.13) APTT (24.2-36.6) Sec. Sodium (137-145) mmol/L Potassium (3.6-5.0) mmol/L Chloride (98-107) mmol/L Carbon Dioxide (22-30) mmol/L Anion Gap mmol/L BUN (7-17) mg/dL Creatinine (0.7-1.2) mg/dL Estimated GFR ml/min BUN/Creatinine Ratio % Glucose (65-100) mg/dL POC Glucose 145 H (70-105) Calcium (8.4-10.2) mg/dL Total Bilirubin (0.1-1.2) mg/dL AST (5-40) units/L ALT (7-56) units/L Alkaline Phosphatase (35-129) units/L Troponin T (0.00-0.029) ng/mL Total Protein (6.3-8.2) g/dL Albumin (3.9-5) g/dL Albumin/Globulin Ratio % Lipase (13-60) units/L Urine Color Yellow (Yellow) Urine Turbidity Slightly-cloudy (Clear) Urine pH 6.0 (5.0-7.0) Ur Specific Phillips 1.008 (1.003-1.030) Urine Protein <15 mg/dl (Negative) mg/dL Urine Glucose (UA) Neg (Negative) mg/dL Urine Ketones Neg (Negative) mg/dL Urine Blood Sm (Negative) Urine Nitrite Neg (Negative) Urine Bilirubin Neg (Negative) Urine Urobilinogen < 2.0 (<2.0) mg/dL Ur Leukocyte Esterase Mod (Negative) Urine WBC (Auto) 45.0 H (0.0-6.0) /HPF Urine RBC (Auto) 6.0 (0.0-6.0) /HPF U Epithel Cells (Auto) 10.0 (0-13.0) /HPF Ur Transition Epith Cell 3 /HPF Blood Type Antibody Screen 12/26/16 12/26/16 12/26/16 Range/Units 19:50 19:50 19:50 WBC (4.5-11.0) K/mm3 RBC (3.65-5.03) M/mm3 Hgb (10.1-14.3) gm/dl Hct (30.3-42.9) % MCV (79-97) fl MCH (28-32) pg MCHC (30-34) % RDW (13.2-15.2) % Plt Count (140-440) K/mm3 PT 19.3 H (12.2-14.9) Sec. INR 1.63 H (0.87-1.13) APTT 48.2 H (24.2-36.6) Sec. Sodium 142 (137-145) mmol/L Potassium 3.7 (3.6-5.0) mmol/L Chloride 102.4 (98-107) mmol/L Carbon Dioxide 21 L (22-30) mmol/L Anion Gap 22 mmol/L BUN 14 (7-17) mg/dL Creatinine 1.0 (0.7-1.2) mg/dL Estimated GFR > 60 ml/min BUN/Creatinine Ratio 14.00 % Glucose 126 H (65-100) mg/dL POC Glucose (70-105) Calcium 10.0 (8.4-10.2) mg/dL Total Bilirubin 0.30 (0.1-1.2) mg/dL AST 13 (5-40) units/L ALT 7 (7-56) units/L Alkaline Phosphatase 74 (35-129) units/L Troponin T < 0.010 (0.00-0.029) ng/mL Total Protein 8.1 (6.3-8.2) g/dL Albumin 3.4 L (3.9-5) g/dL Albumin/Globulin Ratio 0.7 % Lipase 29 (13-60) units/L Urine Color (Yellow) Urine Turbidity (Clear) Urine pH (5.0-7.0) Ur Specific Phillips (1.003-1.030) Urine Protein (Negative) mg/dL Urine Glucose (UA) (Negative) mg/dL Urine Ketones (Negative) mg/dL Urine Blood (Negative) Urine Nitrite (Negative) Urine Bilirubin (Negative) Urine Urobilinogen (<2.0) mg/dL Ur Leukocyte Esterase (Negative) Urine WBC (Auto) (0.0-6.0) /HPF Urine RBC (Auto) (0.0-6.0) /HPF U Epithel Cells (Auto) (0-13.0) /HPF Ur Transition Epith Cell /HPF Blood Type Antibody Screen 12/26/16 Range/Units 19:50 WBC (4.5-11.0) K/mm3 RBC (3.65-5.03) M/mm3 Hgb (10.1-14.3) gm/dl Hct (30.3-42.9) % MCV (79-97) fl MCH (28-32) pg MCHC (30-34) % RDW (13.2-15.2) % Plt Count (140-440) K/mm3 PT (12.2-14.9) Sec. INR (0.87-1.13) APTT (24.2-36.6) Sec. Sodium (137-145) mmol/L Potassium (3.6-5.0) mmol/L Chloride (98-107) mmol/L Carbon Dioxide (22-30) mmol/L Anion Gap mmol/L BUN (7-17) mg/dL Creatinine (0.7-1.2) mg/dL Estimated GFR ml/min BUN/Creatinine Ratio % Glucose (65-100) mg/dL POC Glucose (70-105) Calcium (8.4-10.2) mg/dL Total Bilirubin (0.1-1.2) mg/dL AST (5-40) units/L ALT (7-56) units/L Alkaline Phosphatase (35-129) units/L Troponin T (0.00-0.029) ng/mL Total Protein (6.3-8.2) g/dL Albumin (3.9-5) g/dL Albumin/Globulin Ratio % Lipase (13-60) units/L Urine Color (Yellow) Urine Turbidity (Clear) Urine pH (5.0-7.0) Ur Specific Phillips (1.003-1.030) Urine Protein (Negative) mg/dL Urine Glucose (UA) (Negative) mg/dL Urine Ketones (Negative) mg/dL Urine Blood (Negative) Urine Nitrite (Negative) Urine Bilirubin (Negative) Urine Urobilinogen (<2.0) mg/dL Ur Leukocyte Esterase (Negative) Urine WBC (Auto) (0.0-6.0) /HPF Urine RBC (Auto) (0.0-6.0) /HPF U Epithel Cells (Auto) (0-13.0) /HPF Ur Transition Epith Cell /HPF Blood Type O POSITIVE Antibody Screen Negative - EKG Data -: EKG Interpreted by Me EKG shows normal: sinus rhythm - EKG Data Interpretation: no acute changes 12/26/16 21:34 normal sinus, 73 beats per minute, normal axis, low voltage, abnormal EKG, not consistent with STEMI, appears unchanged compared to prior from December 2016 - Radiology Data Radiology results: report reviewed, image reviewed interpreted by me: X-ray the chest is negative. Elevated right hemidiaphragm, right-sided dialysis access port is noted. Noncontrast CT scan of the brain is negative. - Medical Decision Making Differential diagnosis: Pneumonia, urinary tract infection, anemia, thrombocytopenia, chronic malignancy , chronic debility, neutropenia Assessment and plan: Assessment and plan: 71-year-old female with nonspecific resolves nausea. She is afebrile with reassuring vital signs, while the steady gait, has a GCS of 15, with an NIH score of 0, is guaiac-negative, afebrile rectally, with no chest pain or shortness of breath, headache or abdominal pain. Noncontrast CT scan negative for intracranial hemorrhage. Has some degree of thrombocytopenia and some degree of anemia, however not to the point where she would require packed red blood cell transfusion. Case is discussed with the [facility] physician, , who has arranged for the patient to have follow- up with her outpatient primary care doctor tomorrow. Even though the patient does not endorse irritative or obstructive urinary symptoms, urinalysis suggestive of urinary tract infection, and therefore she'll be started empirically on Macrobid. Critical care attestation.: If time is entered above; I have spent that time in minutes in the direct care of this critically ill patient, excluding procedure time. ED Disposition Clinical Impression: Uterine cancer, Anemia, UTI (urinary tract infection) Disposition: TO HOME OR SELFCARE Is pt being admited?: No Does the pt Need Aspirin: No Condition: Stable Additional Instructions: Cultures were sent today, results will be available in the next 3-5 days. Take the antibiotic as directed. Follow up tomorrow with the [facility] physician at the following office, location, time and phone number: MD Nava at 11:40AM on 12/27/16 at [facility] Office. [address] [place] [address] [address] directions [phone] Return to the ER right away with fevers, chills, chest pain, shortness of breath , confusion, intractable nausea or vomiting, inability to tolerate liquid feeds. Have your primary care doctor contact the medical records department to obtain culture results. Prescriptions: Nitrofurantoin [place]/M-Cryst [Macrobid CAP] 100 mg PO Q12HR #13 capsule Referrals: PRIMARY CAREMD [Primary Care Provider] - 3-5 Days
[2016-12-26 21:01] LABS: Platelet Count 71 K/mm3 (140-440)
--- NOTE | 2016-12-26 21:23 | Cat Scan Report ---
FINAL REPORT EXAM: CT HEAD/BRAIN WO CON HISTORY: weakness, nausea on pradaxa TECHNIQUE: Noncontrast CT axial images of the brain. PRIORS: None. FINDINGS: No parenchymal mass, mass effect, hemorrhage, midline shift or hydrocephalus. No evidence of acute cortical infarct. No abnormal, extra-axial fluid or air collection. Mild, patchy low density in the periventricular and subcortical white matter is nonspecific, but may relate to chronic small vessel ischemic change. Age-related volume loss. Osseous calvarium grossly intact. Partial opacification of left mastoid air complex. IMPRESSION: 1. No acute intracranial findings. 2. Chronic ischemic and atrophic changes.
[2016-12-26 21:48] VITALS: BP 141/68
--- NOTE | 2016-12-27 08:38 | XRay Report ---
PORTABLE CHEST INDICATION: Weakness. Evaluate for pneumonia. COMPARISON: 12/18/2016 FINDINGS: Portable, frontal chest radiograph demonstrates stable inspiration with mildly elevated right hemidiaphragm, right chest port tip about the cavoatrial junction and a normal cardiomediastinal silhouette. Mild horizontal right basilar atelectasis now seen. Clear remainder lungs. EKG leads. Stable bones, including multilevel thoracic spondylosis and mid to lower thoracic levoscoliosis. CONCLUSION: Mild right basilar atelectasis; otherwise stable, as described. Thank you for the opportunity to participate in this patient's care.
== END 2016-12-26 22:02 | disposition home or self-care (01) ==
LOC: ED 18:38
DX: C54.1 Malignant neoplasm of endometrium (principal); D64.9 Anemia, unspecified; N39.0 Urinary tract infection, site not specified; I10 Essential (primary) hypertension; Z86.718 Personal history of other venous thrombosis and embolism
CPT/HCPCS: 36415; 51701; 70450; 71010; 80053; 81001; 82271; 82962; 83690; 84484; 85027; 85610; 85730; 86850; 86900; 86901; 87086; 93005; 93010